=== PATIENT | male | born 1965 | race Caucasian/White ===

== ENCOUNTER → 2017-01-15 | Outpatient (REF) | payer MEDICARE, MEDICAID ==
[~2017-01-15] MED LIST: /LOR25TA OR; /MOXI40TA OR; ADV250INH INH; ALBU17IN INH; CIAL2.5T PO; LEVA12INH INH; LEVA750T PO; METH1VL IV; METH2.5T PO; MUCI600T34 PO; OMEP40CA2 PO; PRED10TA PO; PRED10TA2 PO; PRED2.5T OR; PRED20TA PO; PRED50TA2 PO; PRED5TAB PO; PREV30CA6 PO; PROV100T2 PO; RITA10TA OR; RITA10TA PO; SOMA350T PO; TIOT18INH INH; TIZA2TA PO; TYLE325T5 PO; VIAG100T PO; VICO5TA PO; [UNRECOGNIZED DRUG - REMARK]
[2017-01-15 12:29] LABS: BASO # 0.1 K/mm3 (0.0-0.2); BASO % 1.9 % (0.0-1.0); EOS # 0.2 K/mm3 (0.0-0.50); EOS % 3.5 % (0.0-3.0); LARGE UNSTAINED CELL # 0.2 K/mm3 (0.0-0.4); LARGE UNSTAINED CELL % 2.8 % (0.0-4.0); LYMPH # 1.9 K/mm3 (1.5-4.5); MEAN CORPUSCULAR HEMOGLOBIN 31.4 pg (27.0-33.0); MEAN CORPUSCULAR HGB CONC 33.4 g/dl (32.0-36.5); MONO # 0.4 K/mm3 (0.0-0.8); MONO % 6.8 % (0.0-5.0); NEUTROPHILS % 52.1 % (36.0-66.0); PLATELET COUNT, AUTOMATED 285 k/mm3 (150-450); RED CELL DISTRIBUTION WIDTH 12.6 % (11.5-14.5); WHITE BLOOD COUNT 5.7 K/mm3 (4.0-10.0)
[2017-01-15 12:49] LABS: FOLATE 11.4 NG/ML; VITAMIN B12 LEVEL 336 PG/ML
[2017-01-15 13:01] LABS: ALBUMIN 4.1 GM/DL (3.2-5.2); ALBUMIN/GLOBULIN RATIO 1.28 (1.00-1.93); ALKALINE PHOSPHATASE 68 U/L (45-117); ALT/SGPT 18 U/L (12-78); ANION GAP 5 MEQ/L (8-16); AST/SGOT 12 U/L (15-37); BLOOD UREA NITROGEN 15 MG/DL (7-18); CALCIUM LEVEL 9.5 MG/DL (8.5-10.1); CARBON DIOXIDE LEVEL 32 MEQ/L (21-32); CHLORIDE LEVEL 103 MEQ/L (98-107); CHOLESTEROL LEVEL 146 MG/DL (<200); CREATININE FOR GFR 0.98 MG/DL (0.70-1.30); GLOMERULAR FILTRATION RATE > 60.0 (>56); GLUCOSE, FASTING 73 MG/DL (70-105); POTASSIUM SERUM 4.7 MEQ/L (3.5-5.1); SODIUM LEVEL 140 MEQ/L (136-145); TOTAL PROTEIN 7.3 GM/DL (6.4-8.2); TRIGLYCERIDES LEVEL 61 MG/DL (<150)
== END ==
LOC: M SFHCADAM 10:39
PROVIDERS: ATTEND Physician Assistant Medical
DX: F17.210 Nicotine dependence, cigarettes, uncomplicated (principal); J44.9 Chronic obstructive pulmonary disease, unspecified; W54.0XXA Bitten by dog, initial encounter; G35 Multiple sclerosis; Z79.899 Other long term (current) drug therapy; Y92.89 Other specified places as the place of occurrence of the external cause; Y93.89 Activity, other specified; Y99.8 Other external cause status; E55.9 Vitamin D deficiency, unspecified
CPT/HCPCS: 80053; 80061; 82306; 82607; 82746; 84443; 85025; G0463

== ENCOUNTER 2017-08-10 16:07 | Inpatient (IN) | payer MEDICAID, MEDICARE ==
[~2017-08-10] VITALS: Ht 170.2 cm; Wt 61.9 kg
[2017-08-10] MEDS: PANTOPRAZOLE 40MG TAB (PROTONIX) PO SCH (09:00)
[~2017-08-10 16:07] MED LIST changes: -LEVA750T PO; +LEVA750T7 PO
[2017-08-10] MEDS ORDERED: methylPREDNISolone INJ 125 MG/2 ML VIAL (J2930) IV ONE (16:30)
[2017-08-10] MEDS ORDERED: NS 1,000 ML IV ONE (16:30)
[2017-08-10] MEDS ORDERED: AZITHROMYCIN INJ 500 MG, VIAL MATE ADAPTER 1 EACH in D5W 250 ML IV ONE (16:30)
[2017-08-10] MEDS ORDERED: CEFTRIAXONE SOD 1 GM in APPROPRIATE DILUENT 1 EA IV ONE (16:30)
[2017-08-10] MEDS ORDERED: ALBUTEROL SULFATE 2.5 MG/0.5 ML INH NEB SOLN INH ONE ×2 (16:30→17:15)
[2017-08-10] MEDS ORDERED: IPRATROPIUM 0.5MG/ALBUTEROL 2.5MG INH SOL UD 3ML (DUONEB)(J7620) NEB ONE ×2 (16:30→17:15)
[2017-08-10] MEDS ORDERED: ACETAMINOPHEN 325 MG TAB PO ONE (16:30)
[2017-08-10 16:40] LABS: BASO # 0.1 10^3/uL (0.0-0.2); BASO % 1.3 % (0.0-1.0); EOS % 0.4 % (0.0-3.0); IMMATURE GRANULOCYTE % 0.3 % (0-0); LYMPH # 0.9 10^3/uL (1.5-4.5); LYMPH % 11.9 % (24.0-44.0); MEAN CORPUSCULAR HEMOGLOBIN 31.3 pg (27.0-33.0); MEAN CORPUSCULAR HGB CONC 33.7 g/dl (32.0-36.5); MEAN CORPUSCULAR VOLUME 92.9 fl (80.0-96.0); MONO # 1.1 10^3/uL (0.0-0.8); MONO % 14.2 % (0.0-5.0); NEUTROPHILS # 5.4 10^3/uL (1.8-7.7); NEUTROPHILS % 71.9 % (36.0-66.0); PLATELET COUNT, AUTOMATED 244 10^3/uL (150-450); RED CELL DISTRIBUTION WIDTH 12.7 % (11.5-14.5); WHITE BLOOD COUNT 7.5 10^3/uL (4.0-10.0)
[2017-08-10 17:07] LABS: ABG BASE EXCESS 0.7 (-2.0-2.0); ABG HCO3 26.1 MEQ/L (22.0-26.0); ABG PARTIAL PRESSURE CO2 44.8 mmHg (35.0-45.0); ABG PARTIAL PRESSURE O2 77.3 mmHg (75.0-100.0); ABG STANDARD HCO3 25.1 MEQ/L (22.0-26.0); ABG TOTAL CO2 27.5 MEQ/L (22.0-29.0); ABG pH (ARTERIAL) 7.384 UNITS (7.350-7.450)
[2017-08-10 17:11] LABS: ALBUMIN/GLOBULIN RATIO 1.08 (1.00-1.93); ALKALINE PHOSPHATASE 72 U/L (45-117); ALT/SGPT 14 U/L (12-78); ANION GAP 5 MEQ/L (8-16); AST/SGOT 16 U/L (7-37); BILIRUBIN,DIRECT 0.5 MG/DL (0.0-0.2); BILIRUBIN,TOTAL 1.2 MG/DL (0.2-1.0); BLOOD UREA NITROGEN 11 MG/DL (7-18); CALCIUM LEVEL 8.8 MG/DL (8.5-10.1); CARBON DIOXIDE LEVEL 29 MEQ/L (21-32); CHLORIDE LEVEL 100 MEQ/L (98-107); GLOMERULAR FILTRATION RATE > 60.0 (>56); GLUCOSE, FASTING 74 MG/DL (70-105); POTASSIUM SERUM 4.1 MEQ/L (3.5-5.1); SODIUM LEVEL 134 MEQ/L (136-145); THYROXINE (T4) 12.7 UG/DL (4.5-12.0); TOTAL PROTEIN 7.7 GM/DL (6.4-8.2)
--- NOTE | 2017-08-10 17:41 | REP ---
Portable chest, 05:11 p.m.: Comparisons 07/05/2015 and 07/28/2012. The lung russell are clear. The cardiac size is normal. The tori, mediastinum, and bony thorax are unremarkable. Impression: Negative portable chest. Signed by Diallo Astudillo MD 08/10/2017 05:32 P
[2017-08-10] MEDS ORDERED: HYDR-3716 PO (17:52)
[2017-08-10] MEDS ORDERED: CARI350T PO (17:52)
[2017-08-10] MEDS ORDERED: CARISOPRODOL 350 MG TAB PO PRN (19:30)
[2017-08-10] MEDS ORDERED: ANEXSIA, NORCO 7.5MG/325MG TABLET(HYDROCODONE/APAP) PO PRN (19:30)
--- NOTE | 2017-08-10 19:46 | ECGEPIP ---
Stationary ECG Study [facility] - ED Test Date: 2017-08-10 Pat Name: AVINASH GONZALEZ Department: Room: - Gender: M Freight Booker: satish : 1965 Requested By: Indio Alcala Order Number: [id number] Reading MD: Indio Alcala Measurements Intervals [place] Rate: 107 P: 72 OK: 135 QRS: 89 QRSD: 110 T: 74 QT: 310 QTc: 415 Interpretive Statements SINUS TACHYCARDIA POSSIBLE RIGHT ATRIAL ENLARGEMENT POSSIBLE LEFT ATRIAL ENLARGEMENT INCOMPLETE RIGHT BUNDLE BRANCH BLOCK NONSPECIFIC ST T WAVE CHANGES ABNORMAL RHYTHM ECG CW 04/06/[address] T WAVE CHANGES Electronically Signed On 08-10-2017 19:45:45 EST by Indio Alcala
[2017-08-10] MEDS: ALBUTEROL SULFATE 2.5 MG/0.5 ML INH NEB SOLN NEB SCH (20:28)
[2017-08-10] MEDS: NS 1,000 ML IV SCH ×2 (21:04→23:00)
[2017-08-10 22:20] VITALS: BP 96/54
[2017-08-10] MEDS: SENOKOT S TAB PO SCH (22:50)
[2017-08-11] MEDS: methylPREDNISolone INJ 40 MG/1 ML VIAL (J2920) IV SCH ×4 (00:48→23:54)
[2017-08-11 01:03] VITALS: BP 80/46
[2017-08-11 02:27] VITALS: BP 106/64
[2017-08-11] MEDS: NS 1,000 ML IV SCH ×3 (04:27→12:23)
[2017-08-11 06:00] VITALS: BP 102/56
[2017-08-11 06:46] LABS: BASO % 0.2 % (0.0-1.0); IMMATURE GRANULOCYTE % 0.2 % (0-0); LYMPH # 0.3 10^3/uL (1.5-4.5); LYMPH % 5.2 % (24.0-44.0); MEAN CORPUSCULAR HEMOGLOBIN 30.6 pg (27.0-33.0); MEAN CORPUSCULAR HGB CONC 32.5 g/dl (32.0-36.5); MEAN CORPUSCULAR VOLUME 94.1 fl (80.0-96.0); MONO # 0.1 10^3/uL (0.0-0.8); MONO % 1.6 % (0.0-5.0); NEUTROPHILS # 5.7 10^3/uL (1.8-7.7); NEUTROPHILS % 92.8 % (36.0-66.0); PLATELET COUNT, AUTOMATED 243 10^3/uL (150-450); RED CELL DISTRIBUTION WIDTH 12.8 % (11.5-14.5); WHITE BLOOD COUNT 6.1 10^3/uL (4.0-10.0)
[2017-08-11 07:05] LABS: ANION GAP 8 MEQ/L (8-16); BLOOD UREA NITROGEN 8 MG/DL (7-18); CALCIUM LEVEL 7.8 MG/DL (8.5-10.1); CARBON DIOXIDE LEVEL 25 MEQ/L (21-32); CHLORIDE LEVEL 109 MEQ/L (98-107); CREATININE FOR GFR 0.78 MG/DL (0.70-1.30); GLOMERULAR FILTRATION RATE > 60.0 (>56); GLUCOSE, FASTING 121 MG/DL (70-105); POTASSIUM SERUM 4.6 MEQ/L (3.5-5.1); SODIUM LEVEL 142 MEQ/L (136-145)
[2017-08-11] MEDS: ALBUTEROL SULFATE 2.5 MG/0.5 ML INH NEB SOLN NEB SCH ×2 (07:06→14:20)
[2017-08-11] MEDS ORDERED: TIOTROPIUM INHALER/CAPSULE (SPIRIVA) INH SCH (08:00)
[2017-08-11] MEDS: SENOKOT S TAB PO SCH ×2 (08:22→21:00)
[2017-08-11] MEDS: ENOXAPARIN 40 MG/0.4 ML SYRINGE (J1650) SC SCH (08:22)
[2017-08-11] MEDS: PANTOPRAZOLE 40MG TAB (PROTONIX) PO SCH (08:22)
[2017-08-11] MEDS: ACETAMINOPHEN TAB 650MG DOSE (2X325MG) PO PRN ×2 (12:27→23:55)
--- NOTE | 2017-08-11 12:34 | HPE ---
DATE OF ADMISSION: 08/10/2017 Mr. Peralta is a 52-year-old gentleman who resides in [place], [place]. He has been feeling ill for the last 3 or 4 days, starting off with head cold symptoms to nasal congestion and clear rhinorrhea. He thought that perhaps he was running a temperature, did develop coughing and chest congestion and had more coughing and chest congestion and shortness of breath today. He came to emergency department where he was found to be hypoxic. He was also found to be febrile at 103.3. He was begun on treatment for chronic obstructive pulmonary disease (COPD) exacerbation and community-acquired pneumonia, and he is being admitted to the hospital. His past history includes a diagnosis of COPD with a history of exacerbation about 4 years ago. He is said to have multiple sclerosis. Interestingly, he is not on any medication for this. He smokes one pack per day. 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 MRIs of the brain, thoracic spine and cervical spine in the past have been consistent with demyelination changes consistent with MS. His home medications include: - albuterol one inhalation every 4 hours as needed - Spiriva one inhalation daily - hydrocodone 7.5/325 one tablet every 6 hours as needed for pain - Soma 350 mg twice a day as needed for muscle spasms. ALLERGIES: He does not have any medication allergies. FAMILY HISTORY: His father is alive. He has had gout. His mother ; she had lung disease, was in a car accident. A brother has diabetes. He also has a sister. He has three daughters who are healthy. Family history noted for neurological illness, myocardial infarction ([place]) or cerebrovascular disease or cancer. SOCIAL HISTORY: He is disabled. He resides in [place] with his and daughter. They raise [employer]. He denies alcohol consumption. He is usually seen in the [facility]; last seen by Josselyn Johnson. REVIEW OF SYSTEMS: He thought he did have a fever this week, certainly he has had malaise and he has had no appetite. Says he has not eaten in 3 days. He says he has blurry vision chronically, which is a little better with reading glasses. No hearing issues. No sore throat. No trouble swallowing. He does have a cough and chest congestion. He says he is usually not bothered by his breathing despite his smoking and his COPD diagnosis. Denies chest pains or palpitations. Denies edema. Denies nausea, vomiting, abdominal pain, diarrhea or constipation. Denies dysuria, hematuria, urinary frequency, although he does have nocturia several times. No edema. He does have intermittent leg pains, mostly in his foot. These are said to be due to his MS. He takes hydrocodone up to two times a day p.r.n. for this. He denies any rashes or itching. Denies anxiety or depression symptoms at this time. No memory issues. PHYSICAL EXAMINATION: On examination, this is long-haired, bearded white male with multiple tattoos on his arms. He is alert, oriented and cooperative. Initial temperature at 4:00 p.m. this afternoon was 103, at 6:00 p.m. was 98.2, pulse 96, respirations 18, blood pressure running from 83 to 101 over 51 to 62, oxygen saturation on room air was 84%, on 4 liters nasal cannula it is 95%. He is normocephalic. Extraocular movements are full. Pupils equal, round, regular, react to light. Mouth and throat is unremarkable. Tongue is midline. There is no neck masses, tenderness or adenopathy. No carotid bruits. His lungs show rhonchi at the left base, some end-expiratory wheezes on forced expiration. Heart: Has a regular rhythm without any murmur, click or gallop. Abdomen is soft and nontender without any masses or organomegaly. Bowel sounds are active. Back is nontender. No edema. No calf tenderness. No cyanosis or clubbing. Pedal pulses appear adequate. Cranial nerves III-XII within normal limits. Teller Supervisor are symmetric. Deep tendon reflexes are diminished. He does seem to have some clonus at the ankle. His labs show a hemoglobin of 15.0, WBC 7500, 72% segmented neutrophils, 12% lymphocytes, 14% monocytes. Chemistry profile remarkable for a sodium of 134, potassium 4.1, bilirubin 1.2. Other liver functions normal. CPK normal. Pro-BNP 165, TSH normal, thyroxine 12.7. An ABG done at 4:30 p.m. showed a pH of 7.38, pCO2 of 44.8, pO2 77. He was tested for influenza, and this was negative for type A and B. Chest x-ray is reported to show cardiac size normal. Lung russell clear. I would venture that there is hyperinflation but no infiltrate. ASSESSMENT: 1. Acute lower respiratory infection, suspect viral pneumonitis. 2. Exacerbation of chronic obstructive pulmonary disease (COPD). 3. History of multiple sclerosis. 4. Chronic leg pain due to multiple sclerosis. PLAN: The patient has been treated thus far with nebulizer, IV Solu-Medrol and ceftriaxone and azithromycin. Will be continuing antibiotics, bronchodilators and steroids. If patient does have symptoms of spasm in his legs or pain, we can offer him hydrocodone for the latter and Soma for the former. He was offered a nicotine patch for nicotine withdrawal while he is not smoking and he declines this. Since his blood pressures were soft, I did give him a bolus of IV fluids. His lactic acid level was 1.0. MTDD
--- NOTE | 2017-08-11 13:09 | IPNPDOC ---
Subjective Date Seen The patient was seen on 08/11/17. Subjective Chief Complaint/HPI The patient is a 52-year-old male admitted with a reason for visit of Bronchitis , Copd Exacerbat, Fever, Hypoxia. Events since last encounter Patient reports still having the cough. Feels a little better than yesterday. Denies any lightheadedness with lower blood pressures over night. Reports no oxygen use at home. Has been able to urinate well on his own, no difficulty or decreased amount. Cough is productive, does not look at color of phlegm. No chest pain. No fevers overnight. Constitutional: Denies: Chills, Fever Eyes: Denies: Pain, Vision change Pulmonary: Denies: Dyspnea Cardiovascular: Denies: Chest Pain Objective Physical Examination General Exam: Positive: Alert, Cooperative Eye Exam: Positive: PERRLA, Conjunctiva & lids normal ENT Exam: Positive: Atraumatic Neck Exam: Positive: Supple Chest Exam: Positive: Rales, Wheezing Heart Exam: Positive: Rate Normal Abdomen Exam: Positive: Normal bowel sounds, Soft, Tenderness Extremity Exam: Negative: Clubbing, Cyanosis Neuro Exam: Positive: Normal Gait Assessment /Plan Assessment 1. Acute lower respiratory infection, suspect viral pneumonitis. Continue with Azithromycin and cetriaxone for possible bacterial infection. Blood cultures are pending. Rapid flu negative. 2. Exacerbation of chronic obstructive pulmonary disease (COPD). Continue Solumedrol IV 40 mg q8h. Continue Spiriva and albuterol. Monitor vitals and titrate 02 to 88-92%. 3. Volume overload Rales on exam. Decreased IV fluids from 250 an hour to 50 mL/ hour. Monitor fluid status and output. 3. History of multiple sclerosis. 4. Chronic leg pain due to multiple sclerosis. Plan/VTE VTE Prophylaxis Ordered?: Yes (Lovenox) VS, I&O, 24H, Fishbone Vital Signs/I&O Vital Signs Date Time Temp Pulse Resp B/P (MAP) Pulse Ox O2 Delivery O2 Flow Rate FiO2 08/11/17 10:18 Nasal Cannula 4.0 08/11/17 07:11 100 08/11/17 06:00 98.2 22 102/56 (71) 92 08/10/17 16:28 92 I&O- Last 24 Hours up to 6 AM 08/12/17 06:00 Intake Total 850 ml Output Total 0 ml Balance 850 ml Laboratory Data 24H LABS Laboratory Tests 2 08/10/17 16:28: Immature Granulocyte % (Auto) 0.3H, White Blood Count 7.5, Red Blood Count 4.79 , Hemoglobin 15.0, Hematocrit 44.5, Mean Corpuscular Volume 92.9, Mean Corpuscular Hemoglobin 31.3, Mean Corpuscular Hemoglobin Concent 33.7, Red Cell Distribution Width 12.7, Platelet Count 244, Neutrophils (%) (Auto) 71.9H, Lymphocytes (%) (Auto) 11.9L, Monocytes (%) (Auto) 14.2H, Eosinophils (%) (Auto ) 0.4, Basophils (%) (Auto) 1.3H, Neutrophils # (Auto) 5.4, Lymphocytes # (Auto ) 0.9L, Monocytes # (Auto) 1.1H, Eosinophils # (Auto) 0.0, Basophils # (Auto) 0.1, Immature Granulocyte # (Auto) 0.0, Nucleated Red Blood Cells % (auto) 0.0, Anion Gap 5L, Glomerular Filtration Rate > 60.0, Lactic Acid Level 1.0, Calcium Level 8.8, Aspartate Amino Transf (AST/SGOT) 16, Alanine Aminotransferase (ALT/ SGPT) 14, Alkaline Phosphatase 72, Total Bilirubin 1.2H, Direct Bilirubin 0.5H, Total Creatine Kinase 116, Creatine Kinase MB 1.2, Creatine Kinase MB Relative Index 1.03, Troponin I < 0.02, UE-Gia-E-Type Natriuretic Peptide 165H, Total Protein 7.7, Albumin 4.0, Albumin/Globulin Ratio 1.08, Thyroid Stimulating Hormone (TSH) 0.657, Thyroxine (T4) 12.7H 08/10/17 16:29: Blood Gas Bicarbonate Standard 25.1, Arterial Blood pH 7.384, Arterial Blood Partial Pressure CO2 44.8, Arterial Blood Partial Pressure O2 77.3, Arterial Blood Total CO2 27.5, Arterial Blood HCO3 26.1H, Arterial Blood Base Excess 0.7 , Arterial Blood Oxygen Saturation 96.1 08/11/17 01:42: Lactic Acid Level 1.3 08/11/17 05:54: Immature Granulocyte % (Auto) 0.2H, White Blood Count 6.1, Red Blood Count 4.41 , Hemoglobin 13.5L, Hematocrit 41.5L, Mean Corpuscular Volume 94.1, Mean Corpuscular Hemoglobin 30.6, Mean Corpuscular Hemoglobin Concent 32.5, Red Cell Distribution Width 12.8, Platelet Count 243, Neutrophils (%) (Auto) 92.8H, Lymphocytes (%) (Auto) 5.2L, Monocytes (%) (Auto) 1.6, Eosinophils (%) (Auto) 0.0, Basophils (%) (Auto) 0.2, Neutrophils # (Auto) 5.7, Lymphocytes # (Auto) 0.3L, Monocytes # (Auto) 0.1, Eosinophils # (Auto) 0.0, Basophils # (Auto) 0.0, Immature Granulocyte # (Auto) 0.0, Nucleated Red Blood Cells % (auto) 0.0, Anion Gap 8, Glomerular Filtration Rate > 60.0, Calcium Level 7.8L, Blood Urea Nitrogen 8, Creatinine 0.78, Sodium Level 142#, Potassium Level 4.6, Chloride Level 109H, Carbon Dioxide Level 25 CBC/BMP Laboratory Tests 08/10/17 16:28 Red Blood Count 4.79, Mean Corpuscular Volume 92.9, Mean Corpuscular Hemoglobin 31.3, Mean Corpuscular Hemoglobin Concent 33.7, Red Cell Distribution Width 12.7 , Neutrophils (%) (Auto) 71.9 H, Lymphocytes (%) (Auto) 11.9 L, Monocytes (%) ( Auto) 14.2 H, Eosinophils (%) (Auto) 0.4, Basophils (%) (Auto) 1.3 H, Neutrophils # (Auto) 5.4, Lymphocytes # (Auto) 0.9 L, Monocytes # (Auto) 1.1 H, Eosinophils # (Auto) 0.0, Basophils # (Auto) 0.1 08/11/17 05:54 Red Blood Count 4.41, Mean Corpuscular Volume 94.1, Mean Corpuscular Hemoglobin 30.6, Mean Corpuscular Hemoglobin Concent 32.5, Red Cell Distribution Width 12.8 , Neutrophils (%) (Auto) 92.8 H, Lymphocytes (%) (Auto) 5.2 L, Monocytes (%) ( Auto) 1.6, Eosinophils (%) (Auto) 0.0, Basophils (%) (Auto) 0.2, Neutrophils # ( Auto) 5.7, Lymphocytes # (Auto) 0.3 L, Monocytes # (Auto) 0.1, Eosinophils # ( Auto) 0.0, Basophils # (Auto) 0.0, Calcium Level 7.8 L Microbiology Microbiology 08/10/17 Blood Culture, Received Pending 08/10/17 Blood Culture, Received Pending 08/10/17 Influenza Virus Type A Antigen - Final, Complete 08/10/17 Influenza Virus Type B Antigen - Final, Complete GME ATTESTATION GME ATTESTATION My faculty preceptor for this patient encounter was physically present during the encounter and was fully available. All aspects of the patient interview, examination, medical decision making process, and medical care plan development were reviewed and approved by the faculty preceptor. The faculty preceptor is aware and concurs with the plan as stated in the body of this note and will attest to such by his/her cosignature. ATTENDING NOTE Attending physician note: Resident seen and examined. Case reviewed with Dr. Gomez. ROSANNE MABRY DO Aug 11, 2017 13:09 Luke Diaz M.D. Aug 15, 2017 12:36
[2017-08-11 14:00] VITALS: BP 133/58
[2017-08-11] MEDS: CEFTRIAXONE SOD 1 GM in APPROPRIATE DILUENT 1 EA IV SCH (17:51)
[2017-08-11] MEDS: AZITHROMYCIN INJ 500 MG, VIAL MATE ADAPTER 1 EACH in D5W 250 ML IV SCH (18:50)
[2017-08-11] MEDS: IPRATROPIUM 0.5MG/ALBUTEROL 2.5MG INH SOL UD 3ML (DUONEB)(J7620) NEB SCH ×2 (20:33→23:48)
[2017-08-11 22:00] VITALS: BP 111/71
[2017-08-12] VITALS (8 sets, daily range): BP systolic 113–149; BP diastolic 67–89; O2SAT 97
--- NOTE | 2017-08-12 02:21 | REP ---
Clinical: Cough and wheezing . Comparison: 07/05/2015 . Findings: The mediastinum and cardiac silhouette are stable and within normal limits for portable technique. The lung russell demonstrate chronic-appearing interstitial changes without acute consolidation, effusion, or pneumothorax. Skeletal structures are intact. Impression: No acute cardiopulmonary process appreciated. Signed by Luis Fernando Sorensen MD 08/11/2017 11:13 P
[2017-08-12] MEDS: ACETAMINOPHEN TAB 650MG DOSE (2X325MG) PO PRN ×3 (05:39→20:28)
[2017-08-12] MEDS: IPRATROPIUM 0.5MG/ALBUTEROL 2.5MG INH SOL UD 3ML (DUONEB)(J7620) NEB SCH ×6 (05:39→23:16)
[2017-08-12 07:04] LABS: BASO % 0.1 % (0.0-1.0); IMMATURE GRANULOCYTE % 0.7 % (0-0); LYMPH # 0.4 10^3/uL (1.5-4.5); LYMPH % 3.2 % (24.0-44.0); MEAN CORPUSCULAR HEMOGLOBIN 30.8 pg (27.0-33.0); MEAN CORPUSCULAR HGB CONC 32.3 g/dl (32.0-36.5); MEAN CORPUSCULAR VOLUME 95.4 fl (80.0-96.0); MONO # 0.5 10^3/uL (0.0-0.8); MONO % 4.2 % (0.0-5.0); NEUTROPHILS # 10.9 10^3/uL (1.8-7.7); NEUTROPHILS % 91.8 % (36.0-66.0); PLATELET COUNT, AUTOMATED 231 10^3/uL (150-450); RED CELL DISTRIBUTION WIDTH 13.2 % (11.5-14.5); WHITE BLOOD COUNT 11.9 10^3/uL (4.0-10.0)
[2017-08-12 07:30] LABS: ANION GAP 8 MEQ/L (8-16); BLOOD UREA NITROGEN 12 MG/DL (7-18); CALCIUM LEVEL 7.9 MG/DL (8.5-10.1); CARBON DIOXIDE LEVEL 26 MEQ/L (21-32); CHLORIDE LEVEL 108 MEQ/L (98-107); CREATININE FOR GFR 0.62 MG/DL (0.70-1.30); GLOMERULAR FILTRATION RATE > 60.0 (>56); GLUCOSE, FASTING 133 MG/DL (70-105); POTASSIUM SERUM 4.2 MEQ/L (3.5-5.1); SODIUM LEVEL 142 MEQ/L (136-145)
[2017-08-12] MEDS: PANTOPRAZOLE 40MG TAB (PROTONIX) PO SCH (08:59)
[2017-08-12] MEDS: SENOKOT S TAB PO SCH ×2 (08:59→20:27)
[2017-08-12] MEDS: ENOXAPARIN 40 MG/0.4 ML SYRINGE (J1650) SC SCH (09:00)
[2017-08-12] MEDS ORDERED: INFLUENZA QUADRIVALENT PF VACCINE 0.5ML SYRINGE (90686) IM ONE (09:00)
[2017-08-12] MEDS: methylPREDNISolone INJ 40 MG/1 ML VIAL (J2920) IV SCH (09:01)
--- NOTE | 2017-08-12 09:53 | IPNPDOC ---
Subjective Date Seen The patient was seen on 08/12/17. Subjective Chief Complaint/HPI The patient is a 52-year-old male admitted with a reason for visit of Bronchitis , Copd Exacerbat, Fever, Hypoxia. Constitutional: Denies: Chills ENT: Denies: Head Aches Skin: Denies: Rash Gastrointestinal: Denies: Nausea, Abdominal Pain Genitourinary: Denies: Dysuria, Incontinence Hematologic: Denies: Bruising Objective Physical Examination General Exam: Positive: Alert, Cooperative Eye Exam: Positive: PERRLA, Conjunctiva & lids normal ENT Exam: Positive: Atraumatic Neck Exam: Positive: Supple Chest Exam: Positive: Wheezing (faint, diffuse. no accessory muscle use observed; no retractions) Heart Exam: Positive: Rate Normal Abdomen Exam: Positive: Normal bowel sounds, Soft, Tenderness Extremity Exam: Negative: Clubbing, Cyanosis Neuro Exam: Positive: Normal Gait Assessment /Plan Problems (1) COPD exacerbation Status: Acute Response to Treatment: Improving Problem Text: CXR showed no worsening yesterday. he looks comfortable, no apparent distress. scattered mild wheezing, no flaring and no retractions. (2) Multiple sclerosis Status: Chronic Response to Treatment: Stable Plan/VTE VTE Prophylaxis Ordered?: Yes (Lovenox) Plan Anticipated Discharge: Home VS, I&O, 24H, [facility] Vital Signs/I&O Vital Signs Date Time Temp Pulse Resp B/P (MAP) Pulse Ox O2 Delivery O2 Flow Rate FiO2 08/12/17 06:00 98.2 117 22 134/72 (92) 96 Nasal Cannula 4.0 08/10/17 16:28 92 Laboratory Data 24H LABS Laboratory Tests 2 08/12/17 06:33: Immature Granulocyte % (Auto) 0.7H, White Blood Count 11.9H, Red Blood Count 4.12L, Hemoglobin 12.7L, Hematocrit 39.3L, Mean Corpuscular Volume 95.4, Mean Corpuscular Hemoglobin 30.8, Mean Corpuscular Hemoglobin Concent 32.3, Red Cell Distribution Width 13.2, Platelet Count 231, Neutrophils (%) (Auto) 91.8H, Lymphocytes (%) (Auto) 3.2L, Monocytes (%) (Auto) 4.2, Eosinophils (%) (Auto) 0.0, Basophils (%) (Auto) 0.1, Neutrophils # (Auto) 10.9H, Lymphocytes # (Auto) 0.4L, Monocytes # (Auto) 0.5, Eosinophils # (Auto) 0.0, Basophils # (Auto) 0.0, Immature Granulocyte # (Auto) 0.1H, Nucleated Red Blood Cells % (auto) 0.0, Anion Gap 8, Glomerular Filtration Rate > 60.0, Blood Urea Nitrogen 12, Creatinine 0.62L, Sodium Level 142, Potassium Level 4.2, Chloride Level 108H, Carbon Dioxide Level 26, Calcium Level 7.9L CBC/BMP Laboratory Tests 08/12/17 06:33 Red Blood Count 4.12 L, Mean Corpuscular Volume 95.4, Mean Corpuscular Hemoglobin 30.8, Mean Corpuscular Hemoglobin Concent 32.3, Red Cell Distribution Width 13.2, Neutrophils (%) (Auto) 91.8 H, Lymphocytes (%) (Auto) 3.2 L, Monocytes (%) (Auto) 4.2, Eosinophils (%) (Auto) 0.0, Basophils (%) (Auto ) 0.1, Neutrophils # (Auto) 10.9 H, Lymphocytes # (Auto) 0.4 L, Monocytes # ( Auto) 0.5, Eosinophils # (Auto) 0.0, Basophils # (Auto) 0.0, Calcium Level 7.9 L Microbiology Microbiology 08/10/17 Blood Culture - Preliminary, Resulted No growth after 24 hours . All specim... 08/10/17 Blood Culture - Preliminary, Resulted No growth after 24 hours . All specim... 08/10/17 Influenza Virus Type A Antigen - Final, Complete 08/10/17 Influenza Virus Type B Antigen - Final, Complete Rocky Randolph MD Aug 12, 2017 09:53
[2017-08-12] MEDS: NS 1,000 ML IV SCH (12:20)
[2017-08-12 13:14] LABS: ABG BASE EXCESS -0.5 (-2.0-2.0); ABG HCO3 27.4 MEQ/L (22.0-26.0); ABG PARTIAL PRESSURE CO2 59.3 mmHg (35.0-45.0); ABG PARTIAL PRESSURE O2 71.4 mmHg (75.0-100.0); ABG TOTAL CO2 29.2 MEQ/L (22.0-29.0); ABG pH (ARTERIAL) 7.283 UNITS (7.350-7.450)
[2017-08-12] MEDS ORDERED: FUROSEMIDE 40 MG/4 ML VIAL (J1940) IV ONE (14:30)
--- NOTE | 2017-08-12 15:04 | REP ---
Portable chest x-ray: Single view. History: Dyspnea. Comparison study: August 11, 2017. Findings: The lungs are hyperinflated. Interstitial markings are prominent bilaterally which may reflect interstitial edema. There are is questionable new infiltrate in the left mid lung zone overlying the inferior scapula. Heart is not enlarged. Impression: Prominent interstitial markings. Question infiltrate left mid lung zone. Signed by Leeroy Nguyen MD 08/12/2017 04:14 P
[2017-08-12] MEDS: methylPREDNISolone INJ 125 MG/2 ML VIAL (J2930) IV SCH ×2 (16:58→23:49)
[2017-08-12] MEDS: CEFTRIAXONE SOD 1 GM in APPROPRIATE DILUENT 1 EA IV SCH (16:58)
[2017-08-12] MEDS ORDERED: BUDESONIDE 180MCG INHALER (PULMICORT FLEXHALER) INH ONE (17:00)
--- NOTE | 2017-08-12 17:06 | IPN ---
DATE: 08/12/2017 SUBJECTIVE: The patient is significantly more dyspneic and wheezy than when he was seen earlier today. Gradually became more dyspneic as a day has progressed. He has also shown some evidence of fever. He is looks to be in no distress. He is attempting to sip from his cup of water. His temperature was 101.4 at new and is now 100.9. Pulse 124 by direct radial palpation. He is taking tachypneic, more so than this morning, respiratory rate 32, blood pressure 149/73. Oxygen saturation is 92-94% of Venturi mask flowing at 15 liters. Compared to this morning on 4 liters he was 96%. Auscultation of the chest on exam shows equal air entry and breath sounds, diffuse wheezing, more prominent than before. Prolonged expiratory phase, also more notable than this morning. Abdomen: Soft, nontender. No guarding. No chest wall tenderness. Again, he is alert and oriented, and he is not cyanotic, although significant increase in oxygen requirement. Chest x-ray, repeat lactic acid, and arterial blood gas (ABG) are pending at this time. ASSESSMENT: Acute exacerbation of codpxx, worsening this afternoon with re-development of fever plan. PLAN: Will repeat his respiratory panel, since the first study was negative. Influenza antigen and antibody screen were negative. We will continue steroids and current antibiotic regimen. He is on nebulizers with albuterol plus ipratropium every 4 routinely every two hours with albuterol as needed for dyspnea. At this point, if his blood gas shows no worsening hypercarbia, will keep him on his current situation with telemetry, anticipating giving steroids more time to be effective and reversing some of his bronchospasm, but if he does have respiratory syncytial virus, then he may have further deterioration before he improves. Note that yesterday evening he did suffer an acute worsening of his status at that time as well. Will repeat basic metabolic panel (BMP) and his chest x-ray to see if he is developing some fluid retention, and he may require a pulmonary consultation and possible additional ventilatory support. Certainly if his oxygen cannot be maintained on Venturi, or if he is developing hyperkalemia and hypercarbia, then further interventions will be needed.
[2017-08-12 17:16] LABS: ABG BASE EXCESS 1.5 (-2.0-2.0); ABG HCO3 26.6 MEQ/L (22.0-26.0); ABG PARTIAL PRESSURE CO2 43.8 mmHg (35.0-45.0); ABG PARTIAL PRESSURE O2 69.6 mmHg (75.0-100.0); ABG STANDARD HCO3 25.7 MEQ/L (22.0-26.0); ABG TOTAL CO2 27.9 MEQ/L (22.0-29.0); ABG pH (ARTERIAL) 7.401 UNITS (7.350-7.450)
[2017-08-12] MEDS: ALBUTEROL SULFATE 2.5 MG/0.5 ML INH NEB SOLN NEB PRN ×2 (17:18→20:03)
[2017-08-12] MEDS: AZITHROMYCIN INJ 500 MG, VIAL MATE ADAPTER 1 EACH in D5W 250 ML IV SCH (17:22)
[2017-08-12] MEDS: BUDESONIDE 0.5 MG/2 ML INHALATION SUSPENSION INH SCH ×2 (17:35→20:03)
--- NOTE | 2017-08-12 19:31 | CCN ---
DATE: 08/12/2017 Time patient was seen was 3 p.m. CONSULTING PHYSICIAN: Rocky Randolph MD EXPENSE ANALYST: Jelani Whyte MD, pulmonology/critical care. NOTE: We were asked by Dr. Randolph to emergently evaluate Mr. Peralta for acute respiratory distress. Mr. Peralta is 52-year-old male with a past medical history significant for chronic obstructive pulmonary disease (COPD), asthma (self reported), active tobacco usage on admission (one pack a day) and multiple sclerosis who presented to the emergency department on 08/10/2017 with increased shortness on breath, cough productive of clear sputum and fever. He was felt to have a COPD exacerbation secondary to acute bronchitis and was treated with systemic corticosteroids, antibiotics and bronchodilators. This morning Mr. Peralta's condition worsened. He had marked increased shortness of breath, wheezing and work of breathing and was transferred to the intensive care unit. He notes an ongoing cough but cannot expectorate. He feels significant chest tightness but denies chest pain. No nausea or abdominal pain. No emesis. He remains febrile. No know ill contacts. ALLERGIES: None. HOME MEDICATIONS: Including: - hydrocodone/acetaminophen 7.5/325 mg one tablet by mouth every 6 hours as needed - Ventolin one puff inhalation every 4 hours as needed - carisoprodol 350 mg one tablet by mouth twice a day as needed - Spiriva one inhalation daily PHYSICAL EXAMINATION: VITAL SIGNS: Temperature 101, pulse 123, respirations 28, oxygen was saturating at 91% on room air. Intake and output: Patient's total intake yesterday was 3265, total output 1100 , and balance of positive 2165. GENERAL: Patient is a thin-looking, middle aged male who appeared to be older than his biological age, who was alert, awake, oriented times three. Appears to be in mild distress, laying comfortably in bed with head elevated at 45 degree angle. He speaks in short sentences. HEENT: Normocephalic, atraumatic. Extraocular muscles intact. Mucous moist. Neck supple, no neck lymphadenopathy. CARDIOVASCULAR: Tachycardic, normal S1, S2. No murmur. LUNGS: Symmetric but minimal excursion. No crackles or rhonchi. Wheezing was heard throughout the lung russell with very poor air entrance bilaterally. Significantly prolonged expiratory phase. Mild supraclavicular accessory muscle usage. No retractions. CHEST: Increased anteroposterior (AP) diameter. ABDOMEN: Positive bowel sounds. Soft, nontender, nontender, nondistended. No peritoneal signs. No ecchymosis. No hepatosplenomegaly or masses. EXTREMITIES: No edema, clubbing, or cyanosis. SKIN: Warm and dry. NEUROLOGIC: Patient does have bilateral upper and lower extremity weaknesses. LABORATORY DATA: WBC 11.9, hemoglobin 12.7, hematocrit 39.3, platelet count 231, MCV 95.4. Sodium 142, potassium 4.2, chloride 108, bicarbonate 26, anion gap 8, BUN 8, creatinine 0.63. GFR greater than 60, fasting glucose 133, lactic acid was 2.5, calcium 7.9. BNP was >3000 elevated from 160. Patient's initial ABG shows a pH of 7.283, pCO2 of 59.3, pO2 of 71.4, oxygen saturation was 93.8%. Repeat ABG at 4:30 p.m. shows pH of 7.4, pCO2 of 43.8, pO2 of 69, with oxygen saturating at 95.4%. Patient's methicillin-resistant Staphylococcus aureus (MRSA), respiratory panel, and influenza screening were all pending. Blood culture, times two, shows no growth after 2 days. We reviewed his chest x-ray as well as the report from earlier today. That x- ray showed a normal appearing cardiac silhouette and pulmonary shadows. Increased interstitial markings. Hyperinflation. No acute infiltrates. ASSESSMENT: 52-year-old male with past medical history of chronic obstructive pulmonary disease (COPD), ongoing tobacco usage and multiple sclerosis with: 1. Acute hypercapnic and hypoxemic respiratory failure. He is felt to have a COPD exacerbation secondary to an acute bronchitis (question viral) but his acute decompensation this morning is felt in large part secondary to pulmonary edema. 2. COPD. Etiology may be smoking related vs. asthma with remodeling vs combination of these entities versus other. He appears to have a very bronchospastic component to his obstructive process. 3. Pulmonary edema. Etiology may be fluid overload but need to consider cardiac etiologies. 4. Tobacco usage, ongoing at the time of admission. 5. Multiple sclerosis. Follows with Dr. Marcum. 6. Deep venous thrombosis (DVT) prophylaxis with Lovenox. RECOMMENDATIONS: 1. Would send viral panel. 2. Agree with diuresis. 3. Agree with current antibiotics. 4. Will make NPO for now given marked increased work of breathing, 5. Continue with systemic corticosteroids and bronchodilators. 6. Agree with LAMA. 7. Initially, I was going to start him on NIMV but he clinically appeared to respond to the diuretic and bronchodilators as illustrated by his improved ABG so will defer at this time. 8. Should he again worsen, options would include NIMV but heliox may also be considered as he is very bronchospastic and does not require high FiO2. 9. Tobacco cessation strongly recommended. CODE Status: Patient would like to be DNR/DNI, MOLST form in chart. Total critical care time 45 minutes. ADDENDUM; I, Dr. Anurag Whyte, independently performed a history and physical examination and agree with the above documentation. I discussed the assessment and plan with the resident and agree with the documentation. AMRITA
[2017-08-13] VITALS (7 sets, daily range): BP systolic 93–106; BP diastolic 54–69
[2017-08-13] MEDS: IPRATROPIUM 0.5MG/ALBUTEROL 2.5MG INH SOL UD 3ML (DUONEB)(J7620) NEB SCH ×5 (03:36→19:36)
[2017-08-13] MEDS: methylPREDNISolone INJ 125 MG/2 ML VIAL (J2930) IV SCH ×2 (04:04→11:03)
[2017-08-13 04:59] LABS: BASO % 0.1 % (0.0-1.0); IMMATURE GRANULOCYTE % 0.5 % (0-0); LYMPH # 0.5 10^3/uL (1.5-4.5); LYMPH % 6.4 % (24.0-44.0); MEAN CORPUSCULAR HEMOGLOBIN 31.1 pg (27.0-33.0); MEAN CORPUSCULAR HGB CONC 33.1 g/dl (32.0-36.5); MEAN CORPUSCULAR VOLUME 94.1 fl (80.0-96.0); MONO # 0.2 10^3/uL (0.0-0.8); NEUTROPHILS # 7.1 10^3/uL (1.8-7.7); PLATELET COUNT, AUTOMATED 212 10^3/uL (150-450); WHITE BLOOD COUNT 7.9 10^3/uL (4.0-10.0)
[2017-08-13 05:24] LABS: ANION GAP 6 MEQ/L (8-16); BLOOD UREA NITROGEN 14 MG/DL (7-18); CALCIUM LEVEL 8.1 MG/DL (8.5-10.1); CARBON DIOXIDE LEVEL 34 MEQ/L (21-32); CHLORIDE LEVEL 100 MEQ/L (98-107); CREATININE FOR GFR 0.67 MG/DL (0.70-1.30); GLOMERULAR FILTRATION RATE > 60.0 (>56); GLUCOSE, FASTING 129 MG/DL (70-105); POTASSIUM SERUM 3.7 MEQ/L (3.5-5.1); SODIUM LEVEL 140 MEQ/L (136-145)
[2017-08-13] MEDS: BUDESONIDE 0.5 MG/2 ML INHALATION SUSPENSION INH SCH ×2 (07:30→19:36)
--- NOTE | 2017-08-13 07:40 | IPNPDOC ---
Subjective Date Seen The patient was seen on 08/13/17. Subjective Chief Complaint/HPI The patient is a 52-year-old male admitted with a reason for visit of Bronchitis , Copd Exacerbat, Fever, Hypoxia. Events since last encounter Transferred to ICU for hypercarbia/respiratory acidosis. Significant diuresis with negative 1+L. Patient notes improvement in breathing. Weaned to 2LNC. saturations maintained at a 92-94% range. Constitutional: Reports: Fever (T max 101.1), Denies: Chills, Night Sweats Skin: Denies: Rash, Lesions, Breakdown Pulmonary: Reports: Dyspnea, Cough Cardiovascular: Denies: Chest Pain, Palpitations, Orthopnea, Paroxysmal Noc. Dyspnea, Lt Headedness Gastrointestinal: Denies: Nausea, Vomiting, Abdominal Pain, Diarrhea, Constipation Genitourinary: Denies: Dysuria, Frequency, Incontinence, Retention Objective Physical Examination General Exam: Positive: Alert, Cooperative Eye Exam: Positive: PERRLA, Conjunctiva & lids normal ENT Exam: Positive: Atraumatic Neck Exam: Positive: Supple Chest Exam: Positive: Rales (RLL fine crackles. ), Wheezing (expiratory wheeze throughout) Heart Exam: Positive: Rate Normal Abdomen Exam: Positive: Normal bowel sounds, Soft, Tenderness Extremity Exam: Negative: Clubbing, Cyanosis Neuro Exam: Positive: Normal Gait Assessment /Plan Problems (1) RSV (respiratory syncytial virus infection) Status: Acute Problem Specific Plan: Consult Specialist (2) COPD exacerbation Status: Acute Response to Treatment: Improving Problem Text: 08/13/17: + RSV on respiratory panel. Solumedrol IV q 6 hrs and nebs q 4 hrs. monitor. Maintain oxygen. Better today. CXR showed no worsening yesterday. he looks comfortable, no apparent distress. scattered mild wheezing, no flaring and no retractions. (3) Multiple sclerosis Status: Chronic Response to Treatment: Stable Plan/VTE VTE Prophylaxis Ordered?: Yes (Lovenox) Plan Anticipated Discharge: Home VS, I&O, 24H, Shashi Vital Signs/I&O Vital Signs Date Time Temp Pulse Resp B/P (MAP) Pulse Ox O2 Delivery O2 Flow Rate FiO2 08/13/17 04:00 Nasal Cannula 2.0 08/13/17 04:00 99.9 102 24 101/57 (72) 94 08/12/17 16:00 40 Laboratory Data 24H LABS Laboratory Tests 2 12/18/17 12:58: Lactic Acid Level 2.5*H, OD-Tnw-X-Type Natriuretic Peptide 3334H 08/12/17 13:01: Blood Gas Bicarbonate Standard 24.0, Arterial Blood pH 7.283L, Arterial Blood Partial Pressure CO2 59.3H, Arterial Blood Partial Pressure O2 71.4L, Arterial Blood Total CO2 29.2H, Arterial Blood HCO3 27.4H, Arterial Blood Base Excess - 0.5, Arterial Blood Oxygen Saturation 93.8L 08/12/17 16:09: 08/12/17 16:35: Blood Gas Bicarbonate Standard 25.7, Arterial Blood pH 7.401, Arterial Blood Partial Pressure CO2 43.8, Arterial Blood Partial Pressure O2 69.6L, Arterial Blood Total CO2 27.9, Arterial Blood HCO3 26.6H, Arterial Blood Base Excess 1.5 , Arterial Blood Oxygen Saturation 95.4 08/12/17 17:33: Lactic Acid Followup at 4 Hours 1.9 08/13/17 04:50: Immature Granulocyte % (Auto) 0.5H, White Blood Count 7.9, Red Blood Count 4.27L , Hemoglobin 13.3L, Hematocrit 40.2L, Mean Corpuscular Volume 94.1, Mean Corpuscular Hemoglobin 31.1, Mean Corpuscular Hemoglobin Concent 33.1, Red Cell Distribution Width 13.0, Platelet Count 212, Neutrophils (%) (Auto) 90.0H, Lymphocytes (%) (Auto) 6.4L, Monocytes (%) (Auto) 3.0, Eosinophils (%) (Auto) 0.0, Basophils (%) (Auto) 0.1, Neutrophils # (Auto) 7.1, Lymphocytes # (Auto) 0.5L, Monocytes # (Auto) 0.2, Eosinophils # (Auto) 0.0, Basophils # (Auto) 0.0, Immature Granulocyte # (Auto) 0.0, Nucleated Red Blood Cells % (auto) 0.0, Anion Gap 6L, Glomerular Filtration Rate > 60.0, Blood Urea Nitrogen 14, Creatinine 0.67L, Sodium Level 140, Potassium Level 3.7, Chloride Level 100, Carbon Dioxide Level 34H, Calcium Level 8.1L CBC/BMP Laboratory Tests 08/13/17 04:50 Red Blood Count 4.27 L, Mean Corpuscular Volume 94.1, Mean Corpuscular Hemoglobin 31.1, Mean Corpuscular Hemoglobin Concent 33.1, Red Cell Distribution Width 13.0, Neutrophils (%) (Auto) 90.0 H, Lymphocytes (%) (Auto) 6.4 L, Monocytes (%) (Auto) 3.0, Eosinophils (%) (Auto) 0.0, Basophils (%) (Auto ) 0.1, Neutrophils # (Auto) 7.1, Lymphocytes # (Auto) 0.5 L, Monocytes # (Auto) 0.2, Eosinophils # (Auto) 0.0, Basophils # (Auto) 0.0, Calcium Level 8.1 L Microbiology Microbiology 08/10/17 Blood Culture - Preliminary, Resulted No Growth after 48 hours. All Specime... 08/10/17 Blood Culture - Preliminary, Resulted No Growth after 48 hours. All Specime... 08/12/17 MRSA Screen, Received Pending 08/12/17 Respiratory Virus Panel (PCR) ([facility]) - Final, Complete Respiratory Syncytial Virus 08/10/17 Influenza Virus Type A Antigen - Final, Complete 08/10/17 Influenza Virus Type B Antigen - Final, Complete Pilar Murphy Aug 13, 2017 07:40 Rocky Randolph MD Aug 13, 2017 13:16
[2017-08-13] MEDS: ENOXAPARIN 40 MG/0.4 ML SYRINGE (J1650) SC SCH (08:57)
[2017-08-13] MEDS: SENOKOT S TAB PO SCH ×2 (08:57→20:22)
[2017-08-13] MEDS: PANTOPRAZOLE 40MG TAB (PROTONIX) PO SCH (08:57)
[2017-08-13] MEDS ORDERED: BUDESONIDE 180MCG INHALER (PULMICORT FLEXHALER) INH SCH (09:00)
[2017-08-13] MEDS: ACETAMINOPHEN TAB 650MG DOSE (2X325MG) PO PRN (10:59)
[2017-08-13] MEDS ORDERED: SLF 3 ML SYR IV PRN (13:45)
[2017-08-13] MEDS: SLF 3 ML SYR IV SCH ×2 (14:07→22:00)
[2017-08-14] VITALS (7 sets, daily range): BP systolic 94–113; BP diastolic 58–68; O2SAT 90
[2017-08-14] MEDS: IPRATROPIUM 0.5MG/ALBUTEROL 2.5MG INH SOL UD 3ML (DUONEB)(J7620) NEB SCH ×6 (01:10→20:05)
[2017-08-14] MEDS: SLF 3 ML SYR IV SCH ×3 (06:00→22:00)
[2017-08-14 06:55] LABS: MEAN CORPUSCULAR HGB CONC 33.3 g/dl (32.0-36.5); MEAN CORPUSCULAR VOLUME 93.1 fl (80.0-96.0); PLATELET COUNT, AUTOMATED 237 10^3/uL (150-450); RED CELL DISTRIBUTION WIDTH 12.8 % (11.5-14.5); WHITE BLOOD COUNT 8.5 10^3/uL (4.0-10.0)
[2017-08-14 06:57] LABS: ADD MANUAL DIFFER YES; DIFF SLIDE NUMBER 29; POSITIVE MORPH POS FLAG
[2017-08-14 07:02] LABS: ANION GAP 5 MEQ/L (8-16); BLOOD UREA NITROGEN 23 MG/DL (7-18); CALCIUM LEVEL 7.8 MG/DL (8.5-10.1); CARBON DIOXIDE LEVEL 35 MEQ/L (21-32); CHLORIDE LEVEL 104 MEQ/L (98-107); CREATININE FOR GFR 0.66 MG/DL (0.70-1.30); GLOMERULAR FILTRATION RATE > 60.0 (>56); GLUCOSE, FASTING 105 MG/DL (70-105); POTASSIUM SERUM 3.7 MEQ/L (3.5-5.1); SODIUM LEVEL 144 MEQ/L (136-145)
[2017-08-14 07:25] LABS: BANDS 3 % (< 11)
--- NOTE | 2017-08-14 08:06 | ECHO ---
DATE OF PROCEDURE: 08/13/2017 AGE: 52 GENDER: Male HEIGHT: 67 inches. WEIGHT: 136 pounds. BODY SURFACE AREA: 1.72 sq m. INPATIENT: ICU Room 3208 REFERRING PHYSICIAN: Dr. Donavan Fox INDICATION: Heart failure (unspecified). COPD. MEASUREMENTS: 2D MEASUREMENTS: RV - 2.9 cm LV- 34.0 cm Septum - 0.8 cm Posterior wall - 0.8 cm Aortic root - 3.1 cm LA -2.7 cm LVEF - 65% DOPPLER MEASUREMENTS: AV - 1.26 m/s LVOT- 0.85 m/s LVOT diameter- 2.0 cm MV-E: 86 A: 89 EA ratio 1 Early mitral deacceleration time 236 ms E-prime - 10 A-prime - 10 E/E prime ratio 8.6 PV - 0.8 m/s Pulmonary artery acceleration time 106 ms RVSP: 34 mmHg IVC - 2.1 cm COMMENTS; Normal sinus rhythm without intraventricular conduction disturbance. Normal cardiac chamber sizes and wall thickness. On real-time imaging from the parasternal, apical and subcostal projections wall motion was globally normal to hyperkinetic. Normal-appearing mitral valvular apparatus and leaflet excursion with no posterior systolic buckling. Three equal size aortic cusps of normal thickness and cusp separation. Normal aortic root size. No apparent intracardiac mass or pericardial effusion. Color flow Doppler study taken from the parasternal and projection showed mild tricuspid but no mitral or aortic insufficiency. Guided continuous wave Doppler of his aortic valve showed a normal peak systolic velocity against LV outflow tract obstruction. Pulsed and continuous wave Doppler of his LV inflow tract taken from the apical four-chamber projection showed normal diastolic filling velocities against mitral stenosis. There was also a normal filling pattern. His current estimated mean left atrial pressure was well within normal limits. Pulsed and continuous wave Doppler of his pulmonary trunk showed a normal peak systolic velocity against RV outflow tract obstruction. Pulmonary artery acceleration time was mildly abbreviated consistent with a mildly elevated pulmonary vascular resistance. Guided continuous wave Doppler of his tricuspid valve allowed our estimation of his right ventricular systolic pressure (mildly increased). His inferior vena cava was upper limits of normal in size with a normal appearing respiratory collapse at this time against an elevated central venous pressure. CONCLUSIONS: Normal left ventricular size, wall thickness and hyperkinetic wall motion. Normal left atrial size and Doppler assessment of LV diastolic function and estimated mean left atrial pressure. Normal right heart chamber sizes and wall motion with Doppler sign of borderline to mild pulmonary hypertension. Slightly dilated inferior vena cava with normal respiratory collapse against an elevated central venous pressure at this time.
[2017-08-14] MEDS: ENOXAPARIN 40 MG/0.4 ML SYRINGE (J1650) SC SCH (08:26)
[2017-08-14] MEDS: SENOKOT S TAB PO SCH ×2 (08:26→20:41)
[2017-08-14] MEDS: predniSONE 20 MG TAB PO SCH (08:26)
[2017-08-14] MEDS: PANTOPRAZOLE 40MG TAB (PROTONIX) PO SCH (08:26)
[2017-08-14] MEDS: BUDESONIDE 0.5 MG/2 ML INHALATION SUSPENSION INH SCH (08:33)
[2017-08-14] MEDS: SYMBICORT 160/4.5MCG INHALER 6GM INH SCH ×2 (09:00→20:06)
--- NOTE | 2017-08-14 11:00 | IPNPDOC ---
Subjective Date Seen The patient was seen on 08/14/17. Subjective Chief Complaint/HPI The patient is a 52-year-old male admitted with a reason for visit of Bronchitis , Copd Exacerbat, Fever, Hypoxia. Events since last encounter Significant improvement in breathing symptoms. Patient denies c/o. Constitutional: Denies: Chills, Fever, Night Sweats ENT: Denies: Head Aches, Ear Pain, Dysphagia Pulmonary: Reports: Dyspnea, Cough Gastrointestinal: Denies: Nausea, Vomiting, Abdominal Pain, Diarrhea, Constipation Genitourinary: Denies: Dysuria, Frequency, Incontinence, Retention Hematologic: Denies: Bruising, Bleeding Excessively Objective Physical Examination General Exam: Positive: Alert, Cooperative Eye Exam: Positive: PERRLA, Conjunctiva & lids normal ENT Exam: Positive: Atraumatic Neck Exam: Positive: Supple Chest Exam: Negative: Rales, Wheezing Heart Exam: Positive: Rate Normal Abdomen Exam: Positive: Normal bowel sounds, Soft, Tenderness Extremity Exam: Negative: Clubbing, Cyanosis Neuro Exam: Positive: Normal Gait Assessment /Plan Problems (1) COPD exacerbation Status: Acute Response to Treatment: Improving Problem Text: 08/14/2017: prednisone 40 mg po daily. Wean oxygen today. anticipate DC home in 24-48 hours. PT eval today 08/13/17: + RSV on respiratory panel. Solumedrol IV q 6 hrs and nebs q 4 hrs. monitor. Maintain oxygen. Better today. CXR showed no worsening yesterday. he looks comfortable, no apparent distress. scattered mild wheezing, no flaring and no retractions. (2) RSV (respiratory syncytial virus infection) Status: Acute Problem Specific Plan: Consult Specialist (3) Multiple sclerosis Status: Chronic Response to Treatment: Stable Plan/VTE VTE Prophylaxis Ordered?: Yes (Lovenox) Plan Anticipated Discharge: Home VS, I&O, 24H, Fishbone Vital Signs/I&O Vital Signs Date Time Temp Pulse Resp B/P (MAP) Pulse Ox O2 Delivery O2 Flow Rate FiO2 08/14/17 06:00 99.1 80 18 113/68 (83) 92 Nasal Cannula 2.0 08/12/17 16:00 40 I&O- Last 24 Hours up to 6 AM 08/14/17 06:00 Intake Total 760 ml Output Total 725 ml Balance 35 ml Laboratory Data 24H LABS Laboratory Tests 2 08/14/17 06:29: Nucleated Red Blood Cells % (auto) 0.0, Neutrophils 74, Band Neutrophils 3, Lymphocytes (Manual) 13L, Monocytes (Manual) 7, Atypical Lymphocytes 3, Platelet Estimate NORMAL, Red Blood Cell Morphology NORMAL, Anion Gap 5L, Glomerular Filtration Rate > 60.0, Blood Urea Nitrogen 23#H, Creatinine 0.66L, Sodium Level 144, Potassium Level 3.7, Chloride Level 104, Carbon Dioxide Level 35H, Calcium Level 7.8L CBC/BMP Laboratory Tests 08/14/17 06:29 Red Blood Count 4.19 L, Mean Corpuscular Volume 93.1, Mean Corpuscular Hemoglobin 31.0, Mean Corpuscular Hemoglobin Concent 33.3, Red Cell Distribution Width 12.8, Calcium Level 7.8 L Microbiology Microbiology 08/10/17 Blood Culture - Preliminary, Resulted No Growth after 72 hours. All specime... 08/10/17 Blood Culture - Preliminary, Resulted No Growth after 72 hours. All specime... 08/12/17 MRSA Screen - Final, Complete 08/12/17 Respiratory Virus Panel (PCR) ([facility]) - Final, Complete Respiratory Syncytial Virus 08/10/17 Influenza Virus Type A Antigen - Final, Complete 08/10/17 Influenza Virus Type B Antigen - Final, Complete Pilar Murphy Aug 14, 2017 11:00
[2017-08-14] MEDS: TIOTROPIUM INHALER/CAPSULE (SPIRIVA) INH SCH (11:49)
[2017-08-15] MEDS: IPRATROPIUM 0.5MG/ALBUTEROL 2.5MG INH SOL UD 3ML (DUONEB)(J7620) NEB SCH ×4 (03:51→11:50)
[2017-08-15] MEDS: SLF 3 ML SYR IV SCH (05:24)
[2017-08-15 06:00] VITALS: BP 117/77
[2017-08-15 07:12] LABS: MEAN CORPUSCULAR HEMOGLOBIN 30.9 pg (27.0-33.0); MEAN CORPUSCULAR HGB CONC 32.3 g/dl (32.0-36.5); MEAN CORPUSCULAR VOLUME 95.5 fl (80.0-96.0); PLATELET COUNT, AUTOMATED 250 10^3/uL (150-450); RED CELL DISTRIBUTION WIDTH 12.9 % (11.5-14.5); WHITE BLOOD COUNT 8.1 10^3/uL (4.0-10.0)
[2017-08-15 07:22] LABS: ADD MANUAL DIFFER YES; DIFF SLIDE NUMBER 21; POSITIVE MORPH POS FLAG
[2017-08-15 07:27] LABS: ANION GAP 3 MEQ/L (8-16); BLOOD UREA NITROGEN 30 MG/DL (7-18); CALCIUM LEVEL 7.8 MG/DL (8.5-10.1); CARBON DIOXIDE LEVEL 37 MEQ/L (21-32); CHLORIDE LEVEL 107 MEQ/L (98-107); CREATININE FOR GFR 0.68 MG/DL (0.70-1.30); GLOMERULAR FILTRATION RATE > 60.0 (>56); GLUCOSE, FASTING 86 MG/DL (70-105); POTASSIUM SERUM 3.9 MEQ/L (3.5-5.1); SODIUM LEVEL 147 MEQ/L (136-145)
[2017-08-15 07:50] LABS: EOSINOPHILS 1 % (0-5)
[2017-08-15] MEDS: PANTOPRAZOLE 40MG TAB (PROTONIX) PO SCH (07:54)
[2017-08-15] MEDS: SENOKOT S TAB PO SCH (07:54)
[2017-08-15] MEDS: predniSONE 20 MG TAB PO SCH (07:54)
[2017-08-15] MEDS: ENOXAPARIN 40 MG/0.4 ML SYRINGE (J1650) SC SCH (07:55)
[2017-08-15] MEDS: TIOTROPIUM INHALER/CAPSULE (SPIRIVA) INH SCH (08:00)
[2017-08-15] MEDS: SYMBICORT 160/4.5MCG INHALER 6GM INH SCH (09:12)
[2017-08-15] MEDS ORDERED: SYMB16INH INH (09:38)
[2017-08-15] MEDS ORDERED: PRED20TA PO (09:38)
[2017-08-16] MEDS ORDERED: predniSONE 20 MG TAB PO ONE (09:00)
--- NOTE | 2017-08-17 17:56 | DSES ---
DATE OF ADMISSION: 08/10/2017 DATE OF DISCHARGE: 08/15/2017 ATTENDING PHYSICIAN: Dr. Rocky Randolph. PRIMARY CARE PROVIDER: Gloria Arredondo HISTORY OF PRESENT ILLNESS: This is a 52-year-old gentleman who presented to the emergency department at [facility] for significant chest congestion, cough and shortness of breath. The patient was noted to have fever of 103.3, and hypoxia on presentation. The patient subsequently admitted to the family medicine service. HOSPITAL COURSE: The patient was placed on intravenous (IV) Solu-Medrol, nebulizer treatments, ceftriaxone and azithromycin for pneumonia prophylaxis. A nicotine patch was also placed for nicotine withdrawal. He was given a bolus of IV fluid secondary to some hypotension on presentation. The patient showed some mild volume overload on the second day of admission. IV fluids were weaned down. His oxygen supplementation was provided to keep saturations between 88-92%. On 08/12, the patient developed sudden onset of acute respiratory distress. He was transitioned to the intensive care unit and at that point, the patient appeared to have some significant fluid volume overload. He was subsequently diuresed with IV Lasix, and the patient tolerated that well with a one plus liter volume deficit. Over the last 48 hours, the patient has continued to improve. He was transitioned to the medical floor within 12 hours of his intensive care unit (ICU) admission. He had been weaned off his oxygen. He has passed his physical therapy evaluation, and has been transitioned over to oral steroids. The patient's IV antibiotics were stopped, and he did have a respiratory panel that did return positive for respiratory syncytial virus (RSV). PHYSICAL EXAMINATION: On physical examination today, vital signs are stable. He is afebrile. Oxygen saturation is 91% on room air. HEENT: Neck is supple without lymphadenopathy or jugular venous distention (JVD). CARDIOVASCULAR: Heart rate and rhythm are regular. PULMONARY: Lungs prove an inspiratory wheeze to the right lower lobe today; otherwise, lungs are clear. Bilateral lower extremities are without any edema. ABDOMEN: Soft, nontender, with positive bowel sounds times all four quadrants. NEUROLOGIC: The patient is alert and oriented times three. No visible tremors appreciated. PSYCHIATRIC: Affect is appropriate. Conversation is congruent. Patient maintains eye contact. All questions were answered accordingly. ASSESSMENT/DISCHARGE DIAGNOSES: 1. Viral pneumonitis secondary to respiratory syncytial virus. 2. Exacerbation of chronic obstructive pulmonary disease (COPD). SECONDARY DIAGNOSIS: History of multiple sclerosis and chronic limb pain due to multiple sclerosis. PLAN: The patient will be discharged to home today. He will followup with his PCP within the next 5-7 days. He will followup with pulmonology, Dr. Whyte, at the end of August per her request. Diet is as tolerated. Activity is as tolerated. MEDICATIONS: - Symbicort 160/4.5 mcg two puffs twice a day - prednisone 20 mg tablet taper dose has been ordered; 40 mg by mouth daily for three days, 20 mg daily for three days, 10 mg daily for three days - hydrocodone with acetaminophen 7.5/325 one tablet by mouth every six hours as needed for pain - Ventolin HFA one puff every four hours as needed for shortness of breath - carisoprodol 350 mg by mouth three times a day as needed for muscle spasm - Spiriva HandiHaler one inhalation daily The patient is discharged in stable and satisfactory condition with no further questions at the time of discharge. Consultation completed by Dr. Anurag Whyte.
== END 2017-08-15 13:20 | disposition home or self-care (01) | DRG 193 ==
LOC: M ED 16:07 → M ED INP 19:40 → M MS5PR 22:20 → M ICU 08-12 15:45 → M MS5PR 08-13 21:00
PROVIDERS: ADMIT Family Medicine; ATTEND Family Medicine
DX: J12.1 Respiratory syncytial virus pneumonia (principal); J96.02 Acute respiratory failure with hypercapnia; J44.1 Chronic obstructive pulmonary disease with (acute) exacerbation; E87.2 Acidosis; J44.0 Chronic obstructive pulmonary disease with (acute) lower respiratory infection; F17.210 Nicotine dependence, cigarettes, uncomplicated; Z79.899 Other long term (current) drug therapy

== ENCOUNTER → 2017-09-17 | Outpatient (REF) | payer MEDICARE, MEDICAID ==
[2017-09-17 20:39] LABS: HEMATOCRIT 46.8 % (42.0-52.0); HEMOGLOBIN 15.3 g/dl (14.0-18.0); MEAN CORPUSCULAR HEMOGLOBIN 31.5 pg (27.0-33.0); MEAN CORPUSCULAR HGB CONC 32.7 g/dl (32.0-36.5); MEAN CORPUSCULAR VOLUME 96.5 fl (80.0-96.0); PLATELET COUNT, AUTOMATED 319 10^3/uL (150-450); RED BLOOD COUNT 4.85 10^6/uL (4.30-6.10); RED CELL DISTRIBUTION WIDTH 13.4 % (11.5-14.5); WHITE BLOOD COUNT 8.3 10^3/uL (4.0-10.0)
[2017-09-17 20:57] LABS: FERRITIN 70 NG/ML (26-388); IRON (FE) 123 UG/DL (65-175); PERCENT SATURATION 34.9 % (19.7-50.0); TOTAL IRON BINDING CAPACITY 352 UG/DL (250-450)
[2017-09-17 21:03] LABS: VITAMIN B12 LEVEL 774 PG/ML
[2017-09-17 21:58] LABS: TOTAL 25(OH) VITAMIN D 8.5 NG/ML (30.0-100.0)
== END ==
LOC: M SFHCADAM 16:01
DX: E55.9 Vitamin D deficiency, unspecified (principal); D64.9 Anemia, unspecified
CPT/HCPCS: 82746

== ENCOUNTER → 2018-03-19 | Outpatient (REF) | payer MEDICARE, MEDICAID ==
[2018-03-19 20:32] LABS: TOTAL 25(OH) VITAMIN D 73.4 NG/ML (30.0-100.0)
== END ==
LOC: M SFHCADAM 11:43
DX: E55.9 Vitamin D deficiency, unspecified (principal); Z79.899 Other long term (current) drug therapy
CPT/HCPCS: 82306

== ENCOUNTER → 2018-12-23 | Outpatient (REF) | payer MEDICARE, MEDICAID ==
[~2018-12-23] MED LIST changes: -/MOXI40TA OR; +AVEL1TAB2 OR; +CARI1TAB7 PO; +HYDR-3716 PO; +PRED-351 PO; -PRED10TA PO; +SYMB16INH INH
[2018-12-23 20:11] LABS: BASO # 0.2 10^3/uL (0.0-0.2); BASO % 1.6 % (0.0-1.0); EOS # 0.2 10^3/uL (0.0-0.50); EOS % 1.9 % (0.0-3.0); HEMATOCRIT 48.6 % (42.0-52.0); HEMOGLOBIN 15.7 g/dl (13.5-17.5); LYMPH # 2.6 10^3/uL (1.5-4.5); LYMPH % 27.8 % (24.0-44.0); MEAN CORPUSCULAR HEMOGLOBIN 30.7 pg (27.0-33.0); MEAN CORPUSCULAR HGB CONC 32.3 g/dl (32.0-36.5); MEAN CORPUSCULAR VOLUME 94.9 fl (80.0-96.0); MONO # 0.5 10^3/uL (0.0-0.8); MONO % 5.6 % (0.0-5.0); NEUTROPHILS # 5.8 10^3/uL (1.8-7.7); NEUTROPHILS % 62.9 % (36.0-66.0); PLATELET COUNT, AUTOMATED 285 10^3/uL (150-450); RED BLOOD COUNT 5.12 10^6/uL (4.30-6.10); WHITE BLOOD COUNT 9.2 10^3/uL (4.0-10.0)
[2018-12-23 20:21] LABS: ALBUMIN 4.4 GM/DL (3.2-5.2); ALT/SGPT 21 U/L (12-78); BILIRUBIN,TOTAL 1.1 MG/DL (0.2-1.0); BLOOD UREA NITROGEN 17 MG/DL (7-18); CALCIUM LEVEL 9.2 MG/DL (8.5-10.1); CARBON DIOXIDE LEVEL 32 MEQ/L (21-32); CHLORIDE LEVEL 105 MEQ/L (98-107); CHOLESTEROL LEVEL 137 MG/DL (<200); CHOLESTEROL RISK RATIO 2.584 (<5); FREE T4 1.47 NG/DL (0.76-1.46); GLOMERULAR FILTRATION RATE > 60.0 (>56); GLUCOSE, FASTING 69 MG/DL (70-100); HDL CHOLESTEROL 53 MG/DL (>40); LDL CHOLESTEROL 72 MG/DL (<100); NON-HDL-C 84 MG/DL; POTASSIUM SERUM 5.5 MEQ/L (3.5-5.1); SODIUM LEVEL 139 MEQ/L (136-145); TOTAL PROTEIN 7.2 GM/DL (6.4-8.2); TRIGLYCERIDES LEVEL 61 MG/DL (<150)
[2018-12-23 20:22] LABS: TOTAL 25(OH) VITAMIN D 13.4 NG/ML (30.0-100.0)
== END ==
LOC: M SFHCADAM 14:58
PROVIDERS: ATTEND Physician Assistant Medical
DX: Z00.00 Encounter for general adult medical examination without abnormal findings (principal); G35 Multiple sclerosis; J44.9 Chronic obstructive pulmonary disease, unspecified; F17.210 Nicotine dependence, cigarettes, uncomplicated; E55.9 Vitamin D deficiency, unspecified

== ENCOUNTER → 2022-08-30 | Outpatient (CLI) | payer MEDICARE, MEDICAID | LOC: M ADAMS 14:59 | PROVIDERS: ATTEND Physician Assistant Medical | DX: J44.9 Chronic obstructive pulmonary disease, unspecified (principal) ==

== ENCOUNTER → 2022-08-30 | Outpatient (REF) | payer MEDICARE, MEDICAID ==
[2022-08-30 16:06] LABS: BASO # 0.1 10^3/uL (0.0-0.2); BASO % 1.2 % (0.0-1.0); EOS # 0.2 10^3/uL (0.0-0.5); EOS % 1.7 % (0.0-3.0); HEMATOCRIT 47.5 % (42.0-52.0); LYMPH # 2.2 10^3/uL (1.5-5.0); MEAN CORPUSCULAR HEMOGLOBIN 31.9 pg (27.0-33.0); MEAN CORPUSCULAR HGB CONC 31.6 g/dl (32.0-36.5); MEAN CORPUSCULAR VOLUME 101.1 fl (80.0-96.0); MONO # 0.7 10^3/uL (0.0-0.8); MONO % 7.4 % (2.0-8.0); NEUTROPHILS # 5.9 10^3/uL (1.5-8.5); NEUTROPHILS % 65.4 % (36.0-66.0); PLATELET COUNT, AUTOMATED 338 10^3/uL (150-450); WHITE BLOOD COUNT 9.1 10^3/uL (4.0-10.0)
[2022-08-30 16:40] LABS: ALBUMIN 4.1 G/DL (3.2-5.2); ALKALINE PHOSPHATASE 65 U/L (46-116); ALT/SGPT 23 U/L (7.0-40); AST/SGOT 41 U/L (<34); BLOOD UREA NITROGEN 19 MG/DL (9-23); CALCIUM LEVEL 10.1 MG/DL (8.5-10.1); CARBON DIOXIDE LEVEL 30 MMOL/L (20-31); CHLORIDE LEVEL 102 MMOL/L (98-107); CHOLESTEROL LEVEL 129 MG/DL (<200); CHOLESTEROL RISK RATIO 2.57 (<5); CREATININE FOR GFR 0.84 MG/DL (0.70-1.30); GLOMERULAR FILTRATION RATE > 60.0 (>56); GLUCOSE, FASTING 84 MG/DL (60-100); HDL CHOLESTEROL 50.1 MG/DL (>40); LDL CHOLESTEROL 60.9 MG/DL (<100); NON-HDL-C 79 MG/DL; POTASSIUM SERUM 5.9 MMOL/L (3.5-5.1); SODIUM LEVEL 140 MMOL/L (136-145); TOTAL PROTEIN 7.1 G/DL (5.7-8.2); TRIGLYCERIDES LEVEL 90 MG/DL (<150)
[2022-08-30 16:41] LABS: THYROID STIMULATING HORMONE 1.983 uIU/ML (0.55-4.78); TOTAL 25(OH) VITAMIN D 67.2 NG/ML (20.0-100.0)
== END ==
LOC: M SFHCADAM 14:52
PROVIDERS: ATTEND Physician Assistant Medical
DX: J44.9 Chronic obstructive pulmonary disease, unspecified (principal); E55.9 Vitamin D deficiency, unspecified; Z13.220 Encounter for screening for lipoid disorders; Z13.0 Encounter for screening for diseases of the blood and blood-forming organs and certain disorders involving the immune mechanism; Z79.899 Other long term (current) drug therapy

== ENCOUNTER 2023-10-31 14:49 | Inpatient (IN) | payer MEDICARE, MEDICAID ==
[~2023-10-31] VITALS: Ht 165.1 cm; Wt 63.4 kg
[2023-10-31] MEDS: IPRATROPIUM 0.5MG/ALBUTEROL 2.5MG INH SOL UD 3ML (DUONEB) NEB ONE (15:09)
[2023-10-31 15:33] LABS: BASO % 0.2 % (0.0-1.0); EOS # 0.2 10^3/uL (0.0-0.5); EOS % 1.2 % (0.0-3.0); LYMPH # 0.9 10^3/uL (1.5-5.0); MEAN CORPUSCULAR HEMOGLOBIN 32.1 pg (27.0-33.0); MEAN CORPUSCULAR HGB CONC 32.7 g/dl (32.0-36.5); MEAN CORPUSCULAR VOLUME 98.4 fl (80.0-96.0); MONO # 1.1 10^3/uL (0.0-0.8); MONO % 6.1 % (2.0-8.0); NEUTROPHILS # 15.4 10^3/uL (1.5-8.5); NEUTROPHILS % 86.7 % (36.0-66.0); PLATELET COUNT, AUTOMATED 300 10^3/uL (150-450); RED BLOOD COUNT 4.98 10^6/uL (4.30-6.10); WHITE BLOOD COUNT 17.8 10^3/uL (4.0-10.0)
[2023-10-31 15:33] LABS: ABG BASE EXCESS 4.4 (-2.0-2.0); ABG HCO3 32.9 MMOL/L (22.0-26.0); ABG O2 SATURATION 98.8 % (95.0-99.0); ABG PARTIAL PRESSURE O2 152.5 mmHg (75.0-100.0); ABG STANDARD HCO3 28.4 MMOL/L. (22.0-26.0); ABG pH (ARTERIAL) 7.318 UNITS (7.350-7.450)
[2023-10-31 15:36] LABS: ABG PARTIAL PRESSURE CO2 65.7 mmHg (35.0-45.0)
[2023-10-31 15:46] LABS: INR 0.98; PARTIAL THROMBOPLASTIN TIME 20.5 SECONDS (24.8-34.2); PROTHROMBIN TIME 12.7 SECONDS (12.5-14.5)
[2023-10-31] MEDS: methylPREDNISolone 125MG 2ML VIAL IV ONE (15:51)
[2023-10-31] MEDS: IPRATROPIUM 0.5MG/ALBUTEROL 2.5MG INH SOL UD 3ML (DUONEB) NEB PRN (15:55)
[2023-10-31 16:03] LABS: ALKALINE PHOSPHATASE 48 U/L (46-116); ALT/SGPT 64 U/L (7.0-40); AST/SGOT 58 U/L (<34); BILIRUBIN,DIRECT 0.4 MG/DL (<0.4); BILIRUBIN,TOTAL 0.8 MG/DL (0.3-1.2); BLOOD UREA NITROGEN 24 MG/DL (9-23); CALCIUM LEVEL 8.7 MG/DL (8.5-10.1); CARBON DIOXIDE LEVEL 33 MMOL/L (20-31); CHLORIDE LEVEL 97 MMOL/L (98-107); CK-MB VALUE MASS 25.8 NG/ML (<3.6); CPK CREATINE PHOSPHOKINASE 739 U/L (46-171); GLOMERULAR FILTRATION RATE > 60.0 (>56); GLUCOSE, FASTING 144 MG/DL (60-100); MB/CK RELATIVE INDEX 3.49 (< OR =4); POTASSIUM SERUM 4.6 MMOL/L (3.5-5.1); SODIUM LEVEL 133 MMOL/L (136-145); TOTAL PROTEIN 7.1 G/DL (5.7-8.2)
[2023-10-31 16:05] LABS: FREE T4 0.82 NG/DL (0.89-1.76); THYROID STIMULATING HORMONE 1.009 uIU/ML (0.55-4.78)
[2023-10-31 17:15] LABS: ABG BASE EXCESS 3.4 (-2.0-2.0); ABG HCO3 31.1 MMOL/L (22.0-26.0); ABG O2 SATURATION 90.1 % (95.0-99.0); ABG PARTIAL PRESSURE CO2 59.6 mmHg (35.0-45.0); ABG PARTIAL PRESSURE O2 56.2 mmHg (75.0-100.0); ABG STANDARD HCO3 27.3 MMOL/L. (22.0-26.0); ABG pH (ARTERIAL) 7.336 UNITS (7.350-7.450)
[2023-10-31 17:56] LABS: CK-MB VALUE MASS 22.5 NG/ML (<3.6)
[2023-10-31 17:57] LABS: MB/CK RELATIVE INDEX 3.54 (< OR =4)
[2023-10-31] MEDS ORDERED: ISOVUE-370 76% 100ML VIAL As Ordered ONE (18:37)
[2023-10-31 19:43] LABS: PROCALCITONIN <0.04 ng/ml
[2023-10-31] MEDS ORDERED: ALBU8.5H INH (19:56)
[2023-10-31] MEDS ORDERED: HYDR-3719 PO (19:56)
[2023-10-31] MEDS ORDERED: METH4PACK PO (19:56)
[2023-10-31] MEDS ORDERED: INCR1INH INH (19:56)
[2023-10-31] MEDS ORDERED: NIRM1TAB14 PO (19:56)
[2023-10-31] MEDS ORDERED: HOME MED LIST COMPLETE! XX SCH (20:05)
[2023-10-31] MEDS: IPRATROPIUM 0.5MG/ALBUTEROL 2.5MG INH SOL UD 3ML (DUONEB) NEB SCH (20:08)
[2023-10-31] MEDS ORDERED: ALBUTEROL 90 MCG/ACT 8GM HFA INHALER INH PRN (20:35)
[2023-10-31] MEDS: guaiFENesin 200 MG TAB PO SCH (21:33)
[2023-10-31] MEDS: ACETAMINOPHEN TAB 650MG DOSE (2X325MG) PO PRN (21:34)
[2023-10-31] MEDS: AZITHROMYCIN 250MG TABLET PO SCH (21:34)
[2023-10-31 22:26] VITALS: BP 120/74; O2SAT 93
[2023-10-31] MEDS: NS 1,000 ML IV SCH (22:35)
[2023-10-31 23:35] VITALS: O2SAT 95
[2023-11-01] VITALS (25 sets, daily range): BP systolic 120–147; BP diastolic 69–81; TEMP 97.3–98.5; O2SAT 88–97
[2023-11-01] MEDS: methylPREDNISolone 125MG 2ML VIAL IV SCH (00:08)
[2023-11-01 05:46] LABS: BASO % 0.2 % (0.0-1.0); HEMATOCRIT 45.9 % (42.0-52.0); HEMOGLOBIN 14.7 g/dl (13.5-17.5); LYMPH # 0.6 10^3/uL (1.5-5.0); LYMPH % 5.2 % (24.0-44.0); MEAN CORPUSCULAR HEMOGLOBIN 31.3 pg (27.0-33.0); MEAN CORPUSCULAR VOLUME 97.7 fl (80.0-96.0); MONO # 0.5 10^3/uL (0.0-0.8); NEUTROPHILS # 10.5 10^3/uL (1.5-8.5); NEUTROPHILS % 90.1 % (36.0-66.0); PLATELET COUNT, AUTOMATED 238 10^3/uL (150-450); WHITE BLOOD COUNT 11.7 10^3/uL (4.0-10.0)
[2023-11-01 06:05] LABS: CPK CREATINE PHOSPHOKINASE 478 U/L (46-171)
[2023-11-01 06:06] LABS: ALBUMIN 3.3 G/DL (3.2-5.2); ALKALINE PHOSPHATASE 40 U/L (46-116); ALT/SGPT 80 U/L (7.0-40); AST/SGOT 54 U/L (<34); BILIRUBIN,DIRECT 0.4 MG/DL (<0.4); BILIRUBIN,TOTAL 0.7 MG/DL (0.3-1.2); BLOOD UREA NITROGEN 23 MG/DL (9-23); CALCIUM LEVEL 8.7 MG/DL (8.5-10.1); CARBON DIOXIDE LEVEL 35 MMOL/L (20-31); CHLORIDE LEVEL 101 MMOL/L (98-107); CREATININE FOR GFR 0.64 MG/DL (0.70-1.30); GLOMERULAR FILTRATION RATE > 60.0 (>56); GLUCOSE, FASTING 131 MG/DL (60-100); MAGNESIUM LEVEL 2.4 MG/DL (1.8-2.4); POTASSIUM SERUM 4.7 MMOL/L (3.5-5.1); SODIUM LEVEL 139 MMOL/L (136-145); TOTAL PROTEIN 5.9 G/DL (5.7-8.2)
[2023-11-01] MEDS: TIOTROPIUM INHALER/CAPSULE (SPIRIVA) INH SCH (07:41)
[2023-11-01] MEDS: PANTOPRAZOLE 40MG VIAL IV SCH (09:01)
[2023-11-01 11:04] LABS: HEPATITIS B SURFACE ANTIBODY NEGATIVE (POSITIVE)
[2023-11-01 11:36] LABS: HEPATITIS C VIRUS ABY INDEX 0.03 INDEX (<0.8)
[2023-11-01 11:37] LABS: HEPATITIS B CORE ANTIBODY IGM NEGATIVE (NEGATIVE)
[2023-11-01] MEDS: IPRATROPIUM 0.5MG/ALBUTEROL 2.5MG INH SOL UD 3ML (DUONEB) NEB PRN (16:06)
[2023-11-01] MEDS: ENOXAPARIN 40MG/0.4ML SYRINGE (J1650 PER 10MG) SC SCH (20:41)
[2023-11-02] VITALS (20 sets, daily range): BP systolic 100–141; BP diastolic 61–85; TEMP 97.5–99.8; O2SAT 88–98
[2023-11-02 05:38] LABS: BASO % 0.1 % (0.0-1.0); HEMATOCRIT 43.4 % (42.0-52.0); LYMPH # 0.5 10^3/uL (1.5-5.0); MEAN CORPUSCULAR HEMOGLOBIN 31.9 pg (27.0-33.0); MEAN CORPUSCULAR HGB CONC 32.3 g/dl (32.0-36.5); MEAN CORPUSCULAR VOLUME 98.9 fl (80.0-96.0); MONO # 0.4 10^3/uL (0.0-0.8); MONO % 3.6 % (2.0-8.0); NEUTROPHILS # 10.3 10^3/uL (1.5-8.5); NEUTROPHILS % 91.7 % (36.0-66.0); PLATELET COUNT, AUTOMATED 241 10^3/uL (150-450); RED BLOOD COUNT 4.39 10^6/uL (4.30-6.10); WHITE BLOOD COUNT 11.3 10^3/uL (4.0-10.0)
[2023-11-02 06:36] LABS: ALBUMIN 2.9 G/DL (3.2-5.2); ALKALINE PHOSPHATASE 33 U/L (46-116); ALT/SGPT 147 U/L (7.0-40); AST/SGOT 96 U/L (<34); BILIRUBIN,DIRECT 0.5 MG/DL (<0.4); BILIRUBIN,TOTAL 0.8 MG/DL (0.3-1.2); BLOOD UREA NITROGEN 32 MG/DL (9-23); CALCIUM LEVEL 8.2 MG/DL (8.5-10.1); CARBON DIOXIDE LEVEL 36 MMOL/L (20-31); CHLORIDE LEVEL 102 MMOL/L (98-107); GLOMERULAR FILTRATION RATE > 60.0 (>56); GLUCOSE, FASTING 108 MG/DL (60-100); MAGNESIUM LEVEL 2.5 MG/DL (1.8-2.4); POTASSIUM SERUM 4.6 MMOL/L (3.5-5.1); SODIUM LEVEL 138 MMOL/L (136-145); TOTAL PROTEIN 5.4 G/DL (5.7-8.2)
[2023-11-02] MEDS: FUROSEMIDE 20MG/2ML VIAL IV STA (09:40)
[2023-11-02] MEDS: methylPREDNISolone 125MG 2ML VIAL IV SCH (09:40)
[2023-11-02 10:36] LABS: ABG BASE EXCESS 10.1 (-2.0-2.0); ABG O2 SATURATION 90.5 % (95.0-99.0); ABG PARTIAL PRESSURE CO2 57.8 mmHg (35.0-45.0); ABG PARTIAL PRESSURE O2 54.8 mmHg (75.0-100.0); ABG STANDARD HCO3 33.6 MMOL/L. (22.0-26.0); ABG TOTAL CO2 38.8 MMOL/L (22.0-29.0); ABG pH (ARTERIAL) 7.424 UNITS (7.350-7.450)
[2023-11-02] MEDS ORDERED: NICOTINE 21MG/24HR 1 EA TRANSDERMAL TD SCH (12:25)
[2023-11-02] MEDS ORDERED: PROHANCE 279.3MG/ML 15ML VIAL As Ordered ONE (15:44)
[2023-11-02] MEDS: ANEXSIA, NORCO 7.5MG/325MG TABLET(HYDROCODONE/APAP) PO PRN (23:41)
[2023-11-03] VITALS (27 sets, daily range): BP systolic 118–141; BP diastolic 68–85; TEMP 97–98.9; O2SAT 78–96
[2023-11-03 00:17] LABS: AMPHETAMINES LEVEL URINE NEGATIVE (NEGATIVE); BARBITURATES URINE NEGATIVE (NEGATIVE); BENZODIAZEPINES URINE NEGATIVE (NEGATIVE); COCAINE METABOLITE URINE NEGATIVE (NEGATIVE); METHADONE URINE NEGATIVE (NEGATIVE); OPIATES URINE NEGATIVE (NEGATIVE); PHENCYCLIDINE URINE NEGATIVE (NEGATIVE)
[2023-11-03 00:48] LABS: CANNABINOIDS URINE POSITIVE (NEGATIVE)
[2023-11-03] MEDS: methylPREDNISolone 40MG 1ML VIAL IV SCH (05:19)
[2023-11-03 05:42] LABS: BASO % 0.1 % (0.0-1.0); HEMATOCRIT 44.9 % (42.0-52.0); HEMOGLOBIN 14.6 g/dl (13.5-17.5); LYMPH # 0.6 10^3/uL (1.5-5.0); LYMPH % 3.6 % (24.0-44.0); MEAN CORPUSCULAR HEMOGLOBIN 31.7 pg (27.0-33.0); MEAN CORPUSCULAR HGB CONC 32.5 g/dl (32.0-36.5); MEAN CORPUSCULAR VOLUME 97.6 fl (80.0-96.0); MONO # 0.9 10^3/uL (0.0-0.8); MONO % 5.9 % (2.0-8.0); NEUTROPHILS # 13.8 10^3/uL (1.5-8.5); NEUTROPHILS % 89.7 % (36.0-66.0); PLATELET COUNT, AUTOMATED 260 10^3/uL (150-450); WHITE BLOOD COUNT 15.4 10^3/uL (4.0-10.0)
[2023-11-03 05:52] LABS: ALKALINE PHOSPHATASE 37 U/L (46-116); ALT/SGPT 244 U/L (7.0-40); AST/SGOT 108 U/L (<34); BILIRUBIN,DIRECT 0.6 MG/DL (<0.4); BILIRUBIN,TOTAL 1.1 MG/DL (0.3-1.2); BLOOD UREA NITROGEN 40 MG/DL (9-23); CALCIUM LEVEL 8.7 MG/DL (8.5-10.1); CARBON DIOXIDE LEVEL 38 MMOL/L (20-31); CHLORIDE LEVEL 100 MMOL/L (98-107); CREATININE FOR GFR 0.65 MG/DL (0.70-1.30); GLOMERULAR FILTRATION RATE > 60.0 (>56); GLUCOSE, FASTING 113 MG/DL (60-100); MAGNESIUM LEVEL 2.5 MG/DL (1.8-2.4); POTASSIUM SERUM 4.7 MMOL/L (3.5-5.1); SODIUM LEVEL 141 MMOL/L (136-145); TOTAL PROTEIN 5.4 G/DL (5.7-8.2)
[2023-11-03 07:19] LABS: C REACTIVE PROTEIN QUANTITATIV < 0.40 MG/DL (<1.0)
[2023-11-03 07:21] LABS: C REACTIVE PROTEIN QUANTITATIV < 0.40 MG/DL (<1.0)
[2023-11-03 07:23] LABS: C REACTIVE PROTEIN QUANTITATIV < 0.40 MG/DL (<1.0)
[2023-11-03] MEDS: SENOKOT S TAB PO SCH (09:00)
[2023-11-03] MEDS: MULTIVITAMINS/MINERALS THERAP 1 TAB PO SCH (12:12)
[2023-11-03] MEDS ORDERED: MOM 30ML SUSPENSION UDC PO PRN (12:20)
[2023-11-03] MEDS ORDERED: MIRALAX *UNIT DOSE* 17GM PACKET PO PRN (12:20)
[2023-11-03] MEDS: zolPIDEM TARTRATE 5 MG TAB PO PRN (23:38)
[2023-11-04] VITALS (10 sets, daily range): BP systolic 115–141; BP diastolic 68–90; TEMP 97.2–98.1; O2SAT 90–96
[2023-11-04 05:40] LABS: HEMATOCRIT 47.1 % (42.0-52.0); LYMPH # 0.6 10^3/uL (1.5-5.0); LYMPH % 4.2 % (24.0-44.0); MEAN CORPUSCULAR HEMOGLOBIN 31.4 pg (27.0-33.0); MEAN CORPUSCULAR HGB CONC 31.8 g/dl (32.0-36.5); MEAN CORPUSCULAR VOLUME 98.5 fl (80.0-96.0); MONO # 1.2 10^3/uL (0.0-0.8); MONO % 8.9 % (2.0-8.0); NEUTROPHILS # 11.7 10^3/uL (1.5-8.5); NEUTROPHILS % 86.1 % (36.0-66.0); PLATELET COUNT, AUTOMATED 280 10^3/uL (150-450); RED BLOOD COUNT 4.78 10^6/uL (4.30-6.10); WHITE BLOOD COUNT 13.7 10^3/uL (4.0-10.0)
[2023-11-04 06:11] LABS: ALKALINE PHOSPHATASE 38 U/L (46-116); ALT/SGPT 245 U/L (7.0-40); AST/SGOT 62 U/L (<34); BILIRUBIN,DIRECT 0.5 MG/DL (<0.4); BILIRUBIN,TOTAL 1.1 MG/DL (0.3-1.2); BLOOD UREA NITROGEN 36 MG/DL (9-23); CALCIUM LEVEL 8.5 MG/DL (8.5-10.1); CARBON DIOXIDE LEVEL 37 MMOL/L (20-31); CHLORIDE LEVEL 100 MMOL/L (98-107); GLOMERULAR FILTRATION RATE > 60.0 (>56); GLUCOSE, FASTING 95 MG/DL (60-100); MAGNESIUM LEVEL 2.5 MG/DL (1.8-2.4); POTASSIUM SERUM 4.7 MMOL/L (3.5-5.1); SODIUM LEVEL 141 MMOL/L (136-145); TOTAL PROTEIN 5.5 G/DL (5.7-8.2)
[2023-11-04] MEDS: THIAMINE 100 MG TAB PO SCH (08:32)
[2023-11-04] MEDS: FUROSEMIDE 20MG/2ML VIAL IV STA (10:16)
[2023-11-04] MEDS: RAMELTEON 8 MG TAB (ROZEREM) PO PRN (20:22)
[2023-11-05] VITALS (8 sets, daily range): BP systolic 120–125; BP diastolic 73–79; TEMP 98.2–98.8; O2SAT 84–93
[2023-11-05 06:13] LABS: BASO % 0.1 % (0.0-1.0); EOS % 0.1 % (0.0-3.0); HEMATOCRIT 49.5 % (42.0-52.0); HEMOGLOBIN 16.1 g/dl (13.5-17.5); LYMPH # 1.6 10^3/uL (1.5-5.0); LYMPH % 11.1 % (24.0-44.0); MEAN CORPUSCULAR HEMOGLOBIN 31.9 pg (27.0-33.0); MEAN CORPUSCULAR HGB CONC 32.5 g/dl (32.0-36.5); MONO # 1.8 10^3/uL (0.0-0.8); MONO % 12.7 % (2.0-8.0); NEUTROPHILS # 10.8 10^3/uL (1.5-8.5); NEUTROPHILS % 75.4 % (36.0-66.0); PLATELET COUNT, AUTOMATED 237 10^3/uL (150-450); RED BLOOD COUNT 5.05 10^6/uL (4.30-6.10); WHITE BLOOD COUNT 14.3 10^3/uL (4.0-10.0)
[2023-11-05 06:40] LABS: ALBUMIN 2.9 G/DL (3.2-5.2); ALKALINE PHOSPHATASE 44 U/L (46-116); ALT/SGPT 205 U/L (7.0-40); AST/SGOT 40 U/L (<34); BILIRUBIN,DIRECT 0.5 MG/DL (<0.4); BILIRUBIN,TOTAL 1.2 MG/DL (0.3-1.2); BLOOD UREA NITROGEN 36 MG/DL (9-23); CALCIUM LEVEL 8.2 MG/DL (8.5-10.1); CARBON DIOXIDE LEVEL 38 MMOL/L (20-31); CHLORIDE LEVEL 102 MMOL/L (98-107); CREATININE FOR GFR 0.61 MG/DL (0.70-1.30); GLOMERULAR FILTRATION RATE > 60.0 (>56); GLUCOSE, FASTING 76 MG/DL (60-100); MAGNESIUM LEVEL 2.2 MG/DL (1.8-2.4); POTASSIUM SERUM 4.2 MMOL/L (3.5-5.1); SODIUM LEVEL 141 MMOL/L (136-145); TOTAL PROTEIN 5.5 G/DL (5.7-8.2)
[2023-11-05] MEDS: predniSONE 10MG TAB PO SCH (09:23)
[2023-11-05] MEDS: NYSTATIN 500,000U/5ML SUSP UDC SS SCH ×2 (13:42→17:14)
[2023-11-06] VITALS (13 sets, daily range): BP systolic 105–125; BP diastolic 67–74; TEMP 98.1–98.4; O2SAT 85–93
[2023-11-06 06:19] LABS: BASO % 0.1 % (0.0-1.0); EOS # 0.1 10^3/uL (0.0-0.5); EOS % 0.3 % (0.0-3.0); HEMATOCRIT 48.7 % (42.0-52.0); LYMPH # 1.4 10^3/uL (1.5-5.0); LYMPH % 8.3 % (24.0-44.0); MEAN CORPUSCULAR HEMOGLOBIN 31.8 pg (27.0-33.0); MEAN CORPUSCULAR HGB CONC 32.9 g/dl (32.0-36.5); MEAN CORPUSCULAR VOLUME 96.8 fl (80.0-96.0); MONO # 1.8 10^3/uL (0.0-0.8); MONO % 10.7 % (2.0-8.0); NEUTROPHILS # 13.2 10^3/uL (1.5-8.5); NEUTROPHILS % 80.2 % (36.0-66.0); PLATELET COUNT, AUTOMATED 209 10^3/uL (150-450); RED BLOOD COUNT 5.03 10^6/uL (4.30-6.10); WHITE BLOOD COUNT 16.5 10^3/uL (4.0-10.0)
[2023-11-06 06:49] LABS: ALBUMIN 2.7 G/DL (3.2-5.2); ALKALINE PHOSPHATASE 39 U/L (46-116); ALT/SGPT 142 U/L (7.0-40); AST/SGOT 24 U/L (<34); BILIRUBIN,DIRECT 0.7 MG/DL (<0.4); BILIRUBIN,TOTAL 1.5 MG/DL (0.3-1.2); BLOOD UREA NITROGEN 31 MG/DL (9-23); CALCIUM LEVEL 8.2 MG/DL (8.5-10.1); CARBON DIOXIDE LEVEL 34 MMOL/L (20-31); CHLORIDE LEVEL 101 MMOL/L (98-107); CREATININE FOR GFR 0.59 MG/DL (0.70-1.30); GLOMERULAR FILTRATION RATE > 60.0 (>56); GLUCOSE, FASTING 79 MG/DL (60-100); MAGNESIUM LEVEL 2.2 MG/DL (1.8-2.4); POTASSIUM SERUM 4.5 MMOL/L (3.5-5.1); SODIUM LEVEL 138 MMOL/L (136-145); TOTAL PROTEIN 5.1 G/DL (5.7-8.2)
[2023-11-06] MEDS: PANTOPRAZOLE 40MG TAB (PROTONIX) PO SCH (09:05)
[2023-11-06] MEDS: methylPREDNISolone 40MG 1ML VIAL IV SCH (10:49)
[2023-11-06] MEDS: BUDESONIDE 0.5 MG/2 ML INHALATION SUSPENSION NEB SCH (12:07)
[2023-11-06] MEDS: IPRATROPIUM 0.5MG/ALBUTEROL 2.5MG INH SOL UD 3ML (DUONEB) NEB SCH (12:07)
[2023-11-07 02:00] VITALS: BP 104/63; TEMP 97.9; O2SAT 93
[2023-11-07 06:04] VITALS: BP 102/72; TEMP 98.2; O2SAT 94
[2023-11-07 10:00] VITALS: BP 114/82; TEMP 98.1; O2SAT 93
[2023-11-07] MEDS ORDERED: ANOR1AER PO (10:11)
[2023-11-07] MEDS ORDERED: THIA100TA PO (10:20)
[2023-11-07] MEDS ORDERED: PRED10TA2 PO (10:20)
[2023-11-07] MEDS ORDERED: NYST-38 SS (10:20)
[2023-11-07] MEDS ORDERED: GUAI400T40 PO (10:20)
[2023-11-07] MEDS ORDERED: FOLI1TAB11 PO (10:20)
[2023-11-07] MEDS ORDERED: ALBU2.5V10 INH (10:21)
[2023-11-07] MEDS ORDERED: IPRA0.00 INH (10:21)
[2023-11-07] MEDS ORDERED: PRED20TA PO (10:21)
[2023-11-07] MEDS ORDERED: ALBU8.5H INH (10:21)
[2023-11-07] MEDS ORDERED: MIRA33506 PO (10:22)
[2023-11-08 18:09] LABS: A1A FOR PHENOTYPE 97 mg/dL (101-187); ALPHA-1-ANTITRYPSIN PHENOTYPE MS (.)
== END 2023-11-07 13:52 | disposition home health service (06) | DRG 189 ==
LOC: M ED 14:49 → M ED INP 19:26 → ENRESERV 21:25 → M PCU 22:12 → M MS5PR 11-04 15:25 → M MSPAV 11-04 23:02
PROVIDERS: ADMIT Internal Medicine; ATTEND Internal Medicine
DX: J96.01 Acute respiratory failure with hypoxia (principal); G93.41 Metabolic encephalopathy; J44.1 Chronic obstructive pulmonary disease with (acute) exacerbation; F11.20 Opioid dependence, uncomplicated; M62.82 Rhabdomyolysis; B37.0 Candidal stomatitis; G35 Multiple sclerosis; G89.29 Other chronic pain; I27.20 Pulmonary hypertension, unspecified; R74.01 Elevation of levels of liver transaminase levels; G31.84 Mild cognitive impairment of uncertain or unknown etiology; I27.81 Cor pulmonale (chronic); E88.01 Alpha-1-antitrypsin deficiency; Z86.16 Personal history of COVID-19; Z79.899 Other long term (current) drug therapy; Z87.891 Personal history of nicotine dependence

== ENCOUNTER 2024-10-11 22:46 | Inpatient (IN) | payer MEDICARE, MEDICAID ==
[~2024-10-11] VITALS: Ht 172.7 cm; Wt 61.0 kg
[~2024-10-11 22:46] MED LIST changes: -ADV250INH INH; +ADVA1AER9 INH; +ALBU2.5V10 INH; +ALBU8.5H INH; +ANOR1AER PO; +CARI-555 PO; -CARI1TAB7 PO; +FOLI1TAB11 PO; +GUAI400T40 PO; +HYDR-3719 PO; +INCR1INH INH; +IPRA0.00 INH; +METH4PACK PO; +MIRA33506 PO; +NIRM1TAB14 PO; +NYST-38 SS; +THIA100TA PO
[2024-10-11] MEDS: IPRATROPIUM 0.5MG/ALBUTEROL 2.5MG INH SOL UD 3ML (DUONEB) NEB PRN (23:42)
[2024-10-12 00:58] LABS: VENOUS BASE EXCESS 12.7 (-2.0-2.0); VENOUS HCO3 46.5 MMOL/L (23.0-27.0); VENOUS O2 SATURATION 62.7 % (60.0-80.0); VENOUS PARTIAL PRESSURE CO2 123.4 mmHg (38.0-50.0); VENOUS PARTIAL PRESSURE O2 35.6 mmHg (30.0-50.0); VENOUS PH 7.194 UNITS (7.330-7.430); VENOUS STANDARD HCO3 35.5 MMOL/L; VENOUS TOTAL CO2 50.3 MMOL/L (24.0-28.0)
[2024-10-12 01:01] LABS: BASO % 0.2 % (0.0-1.0); HEMATOCRIT 45.7 % (42.0-52.0); HEMOGLOBIN 13.7 g/dl (13.5-17.5); LYMPH # 0.9 10^3/uL (1.5-5.0); LYMPH % 5.5 % (24.0-44.0); MEAN CORPUSCULAR HEMOGLOBIN 31.8 pg (27.0-33.0); MONO # 1.6 10^3/uL (0.0-0.8); MONO % 9.2 % (2.0-8.0); NEUTROPHILS # 14.4 10^3/uL (1.5-8.5); NEUTROPHILS % 84.6 % (36.0-66.0); PLATELET COUNT, AUTOMATED 213 10^3/uL (150-450); RED BLOOD COUNT 4.31 10^6/uL (4.30-6.10)
[2024-10-12 01:31] LABS: ALKALINE PHOSPHATASE 86 U/L (40-129); ALT/SGPT 604 U/L (7.0-40); AST/SGOT 608 U/L (<34); BILIRUBIN,DIRECT 1.4 MG/DL (<0.4); BILIRUBIN,TOTAL 2.2 MG/DL (0.3-1.2); BLOOD UREA NITROGEN 38 MG/DL (9-23); CALCIUM LEVEL 9.4 MG/DL (8.5-10.1); CARBON DIOXIDE LEVEL > 40.0 MMOL/L (20-31); CHLORIDE LEVEL 98 MMOL/L (98-107); CREATININE FOR GFR 1.36 MG/DL (0.70-1.30); GLOMERULAR FILTRATION RATE 57.1 (>56); GLUCOSE, FASTING 105 MG/DL (60-100); POTASSIUM SERUM 5.1 MMOL/L (3.5-5.1); SODIUM LEVEL 151 MMOL/L (136-145); TOTAL PROTEIN 7.2 G/DL (5.7-8.2)
[2024-10-12] MEDS: NS (Normal Saline) 0.9% 1,000 ML IV ONE (02:35)
[2024-10-12 03:10] LABS: ABG pH (ARTERIAL) 7.327 UNITS (7.350-7.450)
[2024-10-12 03:16] LABS: ABG BASE EXCESS 7.9 (-2.0-2.0); ABG HCO3 36.4 MMOL/L (22.0-26.0); ABG O2 SATURATION 98.8 % (95.0-99.0); ABG PARTIAL PRESSURE O2 148.2 mmHg (75.0-100.0); ABG STANDARD HCO3 31.7 MMOL/L. (22.0-26.0); ABG TOTAL CO2 38.6 MMOL/L (22.0-29.0)
[2024-10-12 03:18] LABS: ABG PARTIAL PRESSURE CO2 71.1 mmHg (35.0-45.0)
[2024-10-12] MEDS ORDERED: LACTULOSE 20GM/30ML SYRUP UDC PO SCH (09:00)
[2024-10-12 10:27] LABS: BASO % 0.3 % (0.0-1.0); HEMATOCRIT 43.2 % (42.0-52.0); HEMOGLOBIN 12.6 g/dl (13.5-17.5); LYMPH # 1.4 10^3/uL (1.5-5.0); MEAN CORPUSCULAR HEMOGLOBIN 30.6 pg (27.0-33.0); MEAN CORPUSCULAR HGB CONC 29.2 g/dl (32.0-36.5); MEAN CORPUSCULAR VOLUME 104.9 fl (80.0-96.0); MONO # 1.5 10^3/uL (0.0-0.8); MONO % 9.7 % (2.0-8.0); NEUTROPHILS # 12.5 10^3/uL (1.5-8.5); NEUTROPHILS % 80.7 % (36.0-66.0); PLATELET COUNT, AUTOMATED 235 10^3/uL (150-450); RED BLOOD COUNT 4.12 10^6/uL (4.30-6.10); WHITE BLOOD COUNT 15.5 10^3/uL (4.0-10.0)
[2024-10-12 11:11] LABS: ALBUMIN 3.7 G/DL (3.2-5.2); ALKALINE PHOSPHATASE 78 U/L (40-129); ALT/SGPT 1106 U/L (7.0-40); AST/SGOT 1259 U/L (<34); BLOOD UREA NITROGEN 46 MG/DL (9-23); CALCIUM LEVEL 9.3 MG/DL (8.5-10.1); CARBON DIOXIDE LEVEL > 40.0 MMOL/L (20-31); CHLORIDE LEVEL 104 MMOL/L (98-107); CREATININE FOR GFR 1.08 MG/DL (0.70-1.30); GLOMERULAR FILTRATION RATE > 60.0 (>56); GLUCOSE, FASTING 106 MG/DL (60-100); POTASSIUM SERUM 4.8 MMOL/L (3.5-5.1); SODIUM LEVEL 150 MMOL/L (136-145)
[2024-10-12] MEDS ORDERED: IPRA0.00 INH (11:35)
[2024-10-12] MEDS ORDERED: NS (Normal Saline) 0.9% 1,000 ML IV ONE (11:40)
[2024-10-12] MEDS ORDERED: HOME MED LIST COMPLETE! XX SCH (11:40)
[2024-10-12] MEDS: BUDESONIDE 0.5 MG/2 ML INHALATION SUSPENSION NEB SCH (12:16)
[2024-10-12] MEDS: FORMOTEROL FUMARATE 20 MCG/2 ML INHALATION SOLUTION (PERFOROMIST) INH SCH (12:16)
[2024-10-12] MEDS: IPRATROPIUM 0.5MG/ALBUTEROL 2.5MG INH SOL UD 3ML (DUONEB) NEB SCH (12:16)
[2024-10-12 12:38] LABS: INR 1.07; PROTHROMBIN TIME 14.2 SECONDS (12.5-14.5)
[2024-10-12 12:43] LABS: ETHYL ALCOHOL (ETHANOL) 0.004 % (0.000-0.010)
[2024-10-12 12:44] LABS: C REACTIVE PROTEIN QUANTITATIV 3.26 MG/DL (<1.0)
[2024-10-12 12:45] LABS: THYROID STIMULATING HORMONE 0.196 uIU/ML (0.55-4.78)
[2024-10-12 12:46] LABS: FOLATE > 24.00 NG/ML (>5.4); HEPATITIS B SURFACE ANTIBODY NEGATIVE (POSITIVE); VITAMIN B12 LEVEL 704 PG/ML (211-911)
[2024-10-12 12:50] LABS: PROCALCITONIN 2.56 ng/ml
[2024-10-12 12:59] LABS: HEPATITIS B SURFACE ANTIGEN NEGATIVE (NEGATIVE)
[2024-10-12 13:18] LABS: HEPATITIS C VIRUS ABY INDEX 0.11 INDEX (<0.8)
[2024-10-12] MEDS ORDERED: NS (Normal Saline) 0.9% 1,000 ML IV SCH (13:50)
[2024-10-12] MEDS: methylPREDNISolone 125MG 2ML VIAL IV ONE (14:02)
[2024-10-12] MEDS: AZITHROMYCIN INJ 500 MG, VIAL MATE ADAPTER 1 EACH in NS 250 ML IV SCH (14:02)
[2024-10-12] MEDS ORDERED: ISOVUE-370 76% 100ML VIAL As Ordered ONE (14:03)
[2024-10-12 14:33] LABS: KETONE, URINE AUTO RFX TRACE mg/dL (NEGATIVE); LEUKOCYTE ESTERASE UR AUTO RFX 2+ (NEGATIVE); MUCUS, URINE RFX SMALL (NEGATIVE); NITRITE, URINE AUTO RFX NEGATIVE (NEGATIVE); RBC, URINE AUTO RFX 1 /HPF (0-3); SQUAM EPITHELIAL CELL UR AURFX 4 /HPF (0-6); WBC, URINE AUTO RFX 3 /HPF (0-3)
[2024-10-12 14:41] LABS: FREE T4 1.27 NG/DL (0.89-1.76)
[2024-10-12 14:51] LABS: AMPHETAMINES LEVEL URINE NEGATIVE (NEGATIVE); BARBITURATES URINE NEGATIVE (NEGATIVE); BENZODIAZEPINES URINE NEGATIVE (NEGATIVE); CANNABINOIDS URINE NEGATIVE (NEGATIVE); COCAINE METABOLITE URINE NEGATIVE (NEGATIVE); METHADONE URINE NEGATIVE (NEGATIVE); PHENCYCLIDINE URINE NEGATIVE (NEGATIVE)
[2024-10-12 14:52] LABS: OPIATES URINE NEGATIVE (NEGATIVE)
[2024-10-12] MEDS: D5W IV ONE ×2 (16:31→18:29)
[2024-10-12] MEDS: ACETYLCYSTEINE IV ONE ×2 (16:31→18:29)
[2024-10-12] MEDS: cefTRIAXone SOD 2 GM in DEXTROSE 5% (D5W) ADV/MINI-BAG 50 ML IV SCH (17:00)
[2024-10-12] MEDS: LACTULOSE 20GM/30ML SYRUP UDC PO SCH (17:00)
[2024-10-12] MEDS: D5W 1,000 ML IV SCH (17:00)
[2024-10-12] MEDS: LACTULOSE 20GM/30ML SYRUP UDC PR SCH (18:00)
[2024-10-12 18:25] LABS: HEMATOCRIT 40.5 % (42.0-52.0); HEMOGLOBIN 12.3 g/dl (13.5-17.5); MEAN CORPUSCULAR HEMOGLOBIN 31.5 pg (27.0-33.0); MEAN CORPUSCULAR HGB CONC 30.4 g/dl (32.0-36.5); MEAN CORPUSCULAR VOLUME 103.8 fl (80.0-96.0); PLATELET COUNT, AUTOMATED 224 10^3/uL (150-450)
[2024-10-12 18:47] LABS: HEPATITIS B CORE ANTIBODY IGM NEGATIVE (NEGATIVE)
[2024-10-12 18:52] LABS: BLOOD UREA NITROGEN 46 MG/DL (9-23); CALCIUM LEVEL 8.9 MG/DL (8.5-10.1); CARBON DIOXIDE LEVEL 38 MMOL/L (20-31); CHLORIDE LEVEL 102 MMOL/L (98-107); CREATININE FOR GFR 0.72 MG/DL (0.70-1.30); GLOMERULAR FILTRATION RATE > 60.0 (>56); GLUCOSE, FASTING 169 MG/DL (60-100); POTASSIUM SERUM 4.4 MMOL/L (3.5-5.1); SODIUM LEVEL 150 MMOL/L (136-145)
[2024-10-12 20:32] LABS: ABG BASE EXCESS 11.1 (-2.0-2.0); ABG HCO3 37.5 MMOL/L (22.0-26.0); ABG PARTIAL PRESSURE CO2 58.8 mmHg (35.0-45.0); ABG PARTIAL PRESSURE O2 156.1 mmHg (75.0-100.0); ABG STANDARD HCO3 34.9 MMOL/L. (22.0-26.0); ABG TOTAL CO2 39.3 MMOL/L (22.0-29.0); ABG pH (ARTERIAL) 7.422 UNITS (7.350-7.450)
[2024-10-12] MEDS: methylPREDNISolone 40MG 1ML VIAL IV SCH (22:15)
[2024-10-13] VITALS (13 sets, daily range): BP systolic 113–120; BP diastolic 58–66; TEMP 98–98.5; O2SAT 84–99
[2024-10-13 00:42] LABS: BLOOD UREA NITROGEN 39 MG/DL (9-23); CALCIUM LEVEL 8.9 MG/DL (8.5-10.1); CARBON DIOXIDE LEVEL > 40.0 MMOL/L (20-31); CHLORIDE LEVEL 101 MMOL/L (98-107); CREATININE FOR GFR 0.64 MG/DL (0.70-1.30); GLOMERULAR FILTRATION RATE > 60.0 (>56); GLUCOSE, FASTING 174 MG/DL (60-100); POTASSIUM SERUM 3.9 MMOL/L (3.5-5.1); SODIUM LEVEL 148 MMOL/L (136-145)
[2024-10-13] MEDS: OLANZapine INTRAMUSCULAR 10MG VIAL IM ONE (01:00)
[2024-10-13 06:57] LABS: BASO % 0.1 % (0.0-1.0); HEMATOCRIT 36.7 % (42.0-52.0); HEMOGLOBIN 11.4 g/dl (13.5-17.5); LYMPH # 0.9 10^3/uL (1.5-5.0); LYMPH % 8.1 % (24.0-44.0); MEAN CORPUSCULAR HEMOGLOBIN 31.6 pg (27.0-33.0); MEAN CORPUSCULAR HGB CONC 31.1 g/dl (32.0-36.5); MEAN CORPUSCULAR VOLUME 101.7 fl (80.0-96.0); MONO # 0.5 10^3/uL (0.0-0.8); NEUTROPHILS # 9.9 10^3/uL (1.5-8.5); NEUTROPHILS % 87.3 % (36.0-66.0); PLATELET COUNT, AUTOMATED 221 10^3/uL (150-450); RED BLOOD COUNT 3.61 10^6/uL (4.30-6.10); WHITE BLOOD COUNT 11.3 10^3/uL (4.0-10.0)
[2024-10-13 07:08] LABS: INR 1.06; PROTHROMBIN TIME 14.1 SECONDS (12.5-14.5)
[2024-10-13 07:26] LABS: ALBUMIN 3.1 G/DL (3.2-5.2); ALKALINE PHOSPHATASE 63 U/L (40-129); ALT/SGPT 941 U/L (7.0-40); AST/SGOT 598 U/L (<34); BILIRUBIN,TOTAL 0.6 MG/DL (0.3-1.2); BLOOD UREA NITROGEN 32 MG/DL (9-23); CALCIUM LEVEL 8.9 MG/DL (8.5-10.1); CARBON DIOXIDE LEVEL > 40.0 MMOL/L (20-31); CHLORIDE LEVEL 99 MMOL/L (98-107); CREATININE FOR GFR 0.56 MG/DL (0.70-1.30); GLOMERULAR FILTRATION RATE > 60.0 (>56); GLUCOSE, FASTING 152 MG/DL (60-100); MAGNESIUM LEVEL 2.2 MG/DL (1.8-2.4); SODIUM LEVEL 145 MMOL/L (136-145); TOTAL PROTEIN 5.9 G/DL (5.7-8.2)
[2024-10-13] MEDS ORDERED: ENOXAPARIN 40MG/0.4ML SYRINGE (J1650 PER 10MG) SC SCH (09:00)
[2024-10-13] MEDS: ENOXAPARIN 40MG/0.4ML SYRINGE (J1650 PER 10MG) SC SCH (09:33)
[2024-10-13 10:57] LABS: VENOUS BASE EXCESS 10.8 (-2.0-2.0); VENOUS HCO3 37.4 MMOL/L (23.0-27.0); VENOUS O2 SATURATION 98.8 % (60.0-80.0); VENOUS PARTIAL PRESSURE CO2 59.1 mmHg (38.0-50.0); VENOUS PARTIAL PRESSURE O2 189.9 mmHg (30.0-50.0); VENOUS PH 7.419 UNITS (7.330-7.430); VENOUS STANDARD HCO3 34.6 MMOL/L; VENOUS TOTAL CO2 39.2 MMOL/L (24.0-28.0)
[2024-10-13 12:37] LABS: HEPATITIS A IgG TOTAL NON-REACTIVE (NON-REACTIVE); HEPATITIS B CORE ANTIBODY IGG NON-REACTIVE (NON-REACTIVE)
[2024-10-13 19:52] LABS: BLOOD UREA NITROGEN 24 MG/DL (9-23); CALCIUM LEVEL 8.9 MG/DL (8.5-10.1); CARBON DIOXIDE LEVEL > 40.0 MMOL/L (20-31); CHLORIDE LEVEL 96 MMOL/L (98-107); CREATININE FOR GFR 0.56 MG/DL (0.70-1.30); GLOMERULAR FILTRATION RATE > 60.0 (>56); GLUCOSE, FASTING 160 MG/DL (60-100); POTASSIUM SERUM 4.1 MMOL/L (3.5-5.1); SODIUM LEVEL 144 MMOL/L (136-145)
[2024-10-14] VITALS (24 sets, daily range): BP systolic 101–127; BP diastolic 61–78; TEMP 97.2–98.3; O2SAT 92–99
[2024-10-14] MEDS: CALCIUM CARBONATE 500 MG CHEW U/D PO ONE (02:00)
[2024-10-14 05:05] LABS: ABG BASE EXCESS 7.6 (-2.0-2.0); ABG PARTIAL PRESSURE O2 228.4 mmHg (75.0-100.0); ABG STANDARD HCO3 31.5 MMOL/L. (22.0-26.0); ABG TOTAL CO2 36.9 MMOL/L (22.0-29.0); ABG pH (ARTERIAL) 7.356 UNITS (7.350-7.450)
[2024-10-14 05:07] LABS: ABG PARTIAL PRESSURE CO2 63.9 mmHg (35.0-45.0)
[2024-10-14 05:22] LABS: BASO % 0.1 % (0.0-1.0); HEMATOCRIT 36.7 % (42.0-52.0); HEMOGLOBIN 11.2 g/dl (13.5-17.5); LYMPH # 0.7 10^3/uL (1.5-5.0); LYMPH % 5.1 % (24.0-44.0); MEAN CORPUSCULAR HEMOGLOBIN 30.8 pg (27.0-33.0); MEAN CORPUSCULAR HGB CONC 30.5 g/dl (32.0-36.5); MEAN CORPUSCULAR VOLUME 100.8 fl (80.0-96.0); MONO # 0.6 10^3/uL (0.0-0.8); MONO % 4.2 % (2.0-8.0); NEUTROPHILS # 12.5 10^3/uL (1.5-8.5); NEUTROPHILS % 90.1 % (36.0-66.0); PLATELET COUNT, AUTOMATED 268 10^3/uL (150-450); RED BLOOD COUNT 3.64 10^6/uL (4.30-6.10); WHITE BLOOD COUNT 13.9 10^3/uL (4.0-10.0)
[2024-10-14 06:01] LABS: ALKALINE PHOSPHATASE 61 U/L (40-129); ALT/SGPT 652 U/L (7.0-40); AST/SGOT 192 U/L (<34); BILIRUBIN,TOTAL 0.6 MG/DL (0.3-1.2); BLOOD UREA NITROGEN 18 MG/DL (9-23); CALCIUM LEVEL 9.1 MG/DL (8.5-10.1); CARBON DIOXIDE LEVEL > 40.0 MMOL/L (20-31); CHLORIDE LEVEL 98 MMOL/L (98-107); CREATININE FOR GFR 0.54 MG/DL (0.70-1.30); GLOMERULAR FILTRATION RATE > 60.0 (>56); GLUCOSE, FASTING 153 MG/DL (60-100); MAGNESIUM LEVEL 2.2 MG/DL (1.8-2.4); POTASSIUM SERUM 3.8 MMOL/L (3.5-5.1); SODIUM LEVEL 146 MMOL/L (136-145); TOTAL PROTEIN 5.9 G/DL (5.7-8.2)
[2024-10-14 06:54] LABS: C REACTIVE PROTEIN QUANTITATIV 0.98 MG/DL (<1.0)
[2024-10-14 07:01] LABS: PROCALCITONIN 0.75 ng/ml
[2024-10-15 03:24] VITALS: BP 122/68; TEMP 98.3; O2SAT 100
[2024-10-15 07:40] VITALS: BP 107/63; TEMP 97.6; O2SAT 95
[2024-10-15 09:14] LABS: BASO % 0.1 % (0.0-1.0); HEMATOCRIT 38.7 % (42.0-52.0); HEMOGLOBIN 11.8 g/dl (13.5-17.5); LYMPH # 0.8 10^3/uL (1.5-5.0); LYMPH % 5.5 % (24.0-44.0); MEAN CORPUSCULAR HEMOGLOBIN 31.1 pg (27.0-33.0); MEAN CORPUSCULAR HGB CONC 30.5 g/dl (32.0-36.5); MEAN CORPUSCULAR VOLUME 101.8 fl (80.0-96.0); MONO # 0.5 10^3/uL (0.0-0.8); MONO % 3.4 % (2.0-8.0); NEUTROPHILS # 13.4 10^3/uL (1.5-8.5); NEUTROPHILS % 90.3 % (36.0-66.0); PLATELET COUNT, AUTOMATED 314 10^3/uL (150-450); WHITE BLOOD COUNT 14.9 10^3/uL (4.0-10.0)
[2024-10-15 09:35] LABS: ALBUMIN 3.1 G/DL (3.2-5.2); ALKALINE PHOSPHATASE 61 U/L (40-129); ALT/SGPT 461 U/L (7.0-40); AST/SGOT 52 U/L (<34); BILIRUBIN,TOTAL 0.5 MG/DL (0.3-1.2); BLOOD UREA NITROGEN 23 MG/DL (9-23); CALCIUM LEVEL 9.1 MG/DL (8.5-10.1); CARBON DIOXIDE LEVEL > 40.0 MMOL/L (20-31); CHLORIDE LEVEL 96 MMOL/L (98-107); CREATININE FOR GFR 0.51 MG/DL (0.70-1.30); GLOMERULAR FILTRATION RATE > 60.0 (>56); GLUCOSE, FASTING 181 MG/DL (60-100); MAGNESIUM LEVEL 2.2 MG/DL (1.8-2.4); POTASSIUM SERUM 4.2 MMOL/L (3.5-5.1); SODIUM LEVEL 145 MMOL/L (136-145); TOTAL PROTEIN 5.8 G/DL (5.7-8.2)
[2024-10-15] MEDS: guaiFENesin ER TABLET 600 MG TAB PO SCH (10:34)
[2024-10-15 11:58] VITALS: BP 129/65; TEMP 98; O2SAT 95
[2024-10-15 22:34] VITALS: BP_SYST 142; BP_SYST 151; BP_DIAS 73; BP_DIAS 74; TEMP 98.2; O2SAT 95
[2024-10-15 23:00] VITALS: O2SAT 97
[2024-10-16] VITALS (12 sets, daily range): BP systolic 113–127; BP diastolic 71–74; TEMP 97.9–98.1; O2SAT 79–99
[2024-10-16 06:22] LABS: HEMATOCRIT 35.8 % (42.0-52.0); HEMOGLOBIN 10.9 g/dl (13.5-17.5); LYMPH # 0.8 10^3/uL (1.5-5.0); LYMPH % 6.5 % (24.0-44.0); MEAN CORPUSCULAR HEMOGLOBIN 30.8 pg (27.0-33.0); MEAN CORPUSCULAR HGB CONC 30.4 g/dl (32.0-36.5); MEAN CORPUSCULAR VOLUME 101.1 fl (80.0-96.0); MONO # 0.7 10^3/uL (0.0-0.8); MONO % 5.3 % (2.0-8.0); NEUTROPHILS % 87.6 % (36.0-66.0); PLATELET COUNT, AUTOMATED 285 10^3/uL (150-450); RED BLOOD COUNT 3.54 10^6/uL (4.30-6.10); WHITE BLOOD COUNT 12.5 10^3/uL (4.0-10.0)
[2024-10-16 06:56] LABS: ALBUMIN 2.8 G/DL (3.2-5.2); ALKALINE PHOSPHATASE 53 U/L (40-129); ALT/SGPT 306 U/L (7.0-40); AST/SGOT 26 U/L (<34); BILIRUBIN,TOTAL 0.5 MG/DL (0.3-1.2); BLOOD UREA NITROGEN 28 MG/DL (9-23); CARBON DIOXIDE LEVEL > 40.0 MMOL/L (20-31); CHLORIDE LEVEL 101 MMOL/L (98-107); CREATININE FOR GFR 0.53 MG/DL (0.70-1.30); GLOMERULAR FILTRATION RATE > 60.0 (>56); GLUCOSE, FASTING 119 MG/DL (60-100); POTASSIUM SERUM 4.3 MMOL/L (3.5-5.1); SODIUM LEVEL 150 MMOL/L (136-145); TOTAL PROTEIN 5.4 G/DL (5.7-8.2)
[2024-10-16] MEDS ORDERED: ALBUTEROL SULFATE 2.5MG/0.5ML INH NEB SOLN NEB PRN (11:05)
[2024-10-16] MEDS: D5W 500 ML IV ONE (12:54)
[2024-10-16] MEDS ORDERED: PRED10TA2 PO (15:39)
[2024-10-16] MEDS ORDERED: ALB2.5NEB NEB (15:39)
[2024-10-16] MEDS ORDERED: IPRA0.00 NEB (15:39)
[2024-10-16] MEDS ORDERED: BUDE90AE INH (15:39)
[2024-10-16] MEDS ORDERED: ANOR1AER PO (15:39)
[2024-10-16] MEDS ORDERED: MUCI600T31 PO (16:14)
[2024-10-17] VITALS (7 sets, daily range): BP systolic 120–127; BP diastolic 75–80; TEMP 97.9–98.1; O2SAT 79–97
[2024-10-17 06:28] LABS: BASO % 0.1 % (0.0-1.0); HEMATOCRIT 37.4 % (42.0-52.0); HEMOGLOBIN 11.3 g/dl (13.5-17.5); LYMPH # 0.6 10^3/uL (1.5-5.0); LYMPH % 4.8 % (24.0-44.0); MEAN CORPUSCULAR HEMOGLOBIN 30.7 pg (27.0-33.0); MEAN CORPUSCULAR HGB CONC 30.2 g/dl (32.0-36.5); MEAN CORPUSCULAR VOLUME 101.6 fl (80.0-96.0); MONO # 0.7 10^3/uL (0.0-0.8); MONO % 5.6 % (2.0-8.0); NEUTROPHILS # 11.7 10^3/uL (1.5-8.5); NEUTROPHILS % 88.8 % (36.0-66.0); PLATELET COUNT, AUTOMATED 317 10^3/uL (150-450); RED BLOOD COUNT 3.68 10^6/uL (4.30-6.10); WHITE BLOOD COUNT 13.1 10^3/uL (4.0-10.0)
[2024-10-17 07:04] LABS: ALBUMIN 2.8 G/DL (3.2-5.2); ALKALINE PHOSPHATASE 54 U/L (40-129); ALT/SGPT 232 U/L (7.0-40); AST/SGOT 19 U/L (<34); BILIRUBIN,TOTAL 0.5 MG/DL (0.3-1.2); BLOOD UREA NITROGEN 30 MG/DL (9-23); CALCIUM LEVEL 9.1 MG/DL (8.5-10.1); CARBON DIOXIDE LEVEL > 40.0 MMOL/L (20-31); CHLORIDE LEVEL 100 MMOL/L (98-107); CREATININE FOR GFR 0.55 MG/DL (0.70-1.30); GLOMERULAR FILTRATION RATE > 60.0 (>56); GLUCOSE, FASTING 123 MG/DL (60-100); POTASSIUM SERUM 4.1 MMOL/L (3.5-5.1); SODIUM LEVEL 150 MMOL/L (136-145); TOTAL PROTEIN 5.3 G/DL (5.7-8.2)
[2024-10-17 09:46] LABS: HEMATOCRIT 39.4 % (42.0-52.0); HEMOGLOBIN 11.9 g/dl (13.5-17.5); MEAN CORPUSCULAR HEMOGLOBIN 31.4 pg (27.0-33.0); MEAN CORPUSCULAR HGB CONC 30.2 g/dl (32.0-36.5); PLATELET COUNT, AUTOMATED 320 10^3/uL (150-450); RED BLOOD COUNT 3.79 10^6/uL (4.30-6.10); WHITE BLOOD COUNT 14.8 10^3/uL (4.0-10.0)
[2024-10-17 10:09] LABS: BLOOD UREA NITROGEN 29 MG/DL (9-23); CALCIUM LEVEL 9.3 MG/DL (8.5-10.1); CARBON DIOXIDE LEVEL > 40.0 MMOL/L (20-31); CHLORIDE LEVEL 100 MMOL/L (98-107); CREATININE FOR GFR 0.54 MG/DL (0.70-1.30); GLOMERULAR FILTRATION RATE > 60.0 (>56); GLUCOSE, FASTING 176 MG/DL (60-100); POTASSIUM SERUM 4.3 MMOL/L (3.5-5.1); SODIUM LEVEL 149 MMOL/L (136-145)
[2024-10-17] MEDS: FLEET ENEMA PR ONE (11:31)
== END 2024-10-17 14:05 | disposition home health service (06) | DRG 70 ==
LOC: M ED 22:46 → EDBD 22:46 → M ED INP 10-12 09:50 → M PCU 10-13 15:18 → M MSPAV 10-15 22:33
PROVIDERS: ADMIT Internal Medicine; ATTEND Student in an Organized Health Care Education/Training Program
PROC: B246ZZZ Ultrasonography of Right and Left Heart (ICD-10-PCS; principal; 2024-10-13)
DX: G93.41 Metabolic encephalopathy (principal); J96.21 Acute and chronic respiratory failure with hypoxia; J96.22 Acute and chronic respiratory failure with hypercapnia; N17.9 Acute kidney failure, unspecified; E87.0 Hyperosmolality and hypernatremia; N39.0 Urinary tract infection, site not specified; E87.29 Other acidosis; J44.1 Chronic obstructive pulmonary disease with (acute) exacerbation; I27.20 Pulmonary hypertension, unspecified; G35 Multiple sclerosis; E86.0 Dehydration; B34.2 Coronavirus infection, unspecified; G89.29 Other chronic pain; F17.200 Nicotine dependence, unspecified, uncomplicated; R74.01 Elevation of levels of liver transaminase levels; Z66 Do not resuscitate; Z79.51 Long term (current) use of inhaled steroids; Z79.899 Other long term (current) drug therapy; Z99.81 Dependence on supplemental oxygen; Z71.6 Tobacco abuse counseling; Z79.891 Long term (current) use of opiate analgesic

== ENCOUNTER → 2024-10-28 | Outpatient (REF) | payer MEDICARE, MEDICAID ==
[~2024-10-28] MED LIST changes: +ALB2.5NEB NEB; +BUDE90AE INH; +IPRA0.00 NEB; +MUCI600T31 PO
== END ==
LOC: M SFHCADAM 11:36
PROVIDERS: ATTEND Physician Assistant Medical
DX: E87.0 Hyperosmolality and hypernatremia (principal); R79.89 Other specified abnormal findings of blood chemistry

== ENCOUNTER → 2024-12-09 | Outpatient (REF) | payer MEDICARE, MEDICAID ==
[2024-12-09 13:20] LABS: BASO # 0.1 10^3/uL (0.0-0.2); BASO % 1.4 % (0.0-1.0); EOS # 0.2 10^3/uL (0.0-0.5); EOS % 2.7 % (0.0-3.0); HEMATOCRIT 41.7 % (42.0-52.0); HEMOGLOBIN 12.3 g/dl (13.5-17.5); MEAN CORPUSCULAR HEMOGLOBIN 30.8 pg (27.0-33.0); MEAN CORPUSCULAR HGB CONC 29.5 g/dl (32.0-36.5); MEAN CORPUSCULAR VOLUME 104.5 fl (80.0-96.0); MONO # 0.5 10^3/uL (0.0-0.8); NEUTROPHILS # 5.8 10^3/uL (1.5-8.5); NEUTROPHILS % 66.6 % (36.0-66.0); PLATELET COUNT, AUTOMATED 298 10^3/uL (150-450); RED BLOOD COUNT 3.99 10^6/uL (4.30-6.10); WHITE BLOOD COUNT 8.7 10^3/uL (4.0-10.0)
[2024-12-09 13:41] LABS: HEMOGLOBIN A1c 4.6 % (4.0-6.0)
[2024-12-09 13:58] LABS: ALBUMIN 3.6 G/DL (3.2-5.2); ALKALINE PHOSPHATASE 64 U/L (40-129); ALT/SGPT 10 U/L (7.0-40); AST/SGOT 13 U/L (<34); BILIRUBIN,TOTAL 0.7 MG/DL (0.3-1.2); BLOOD UREA NITROGEN 16 MG/DL (9-23); CALCIUM LEVEL 9.4 MG/DL (8.5-10.1); CARBON DIOXIDE LEVEL 38 MMOL/L (20-31); CHLORIDE LEVEL 103 MMOL/L (98-107); CHOLESTEROL LEVEL 154 MG/DL (<200); CHOLESTEROL RISK RATIO 2.59 (<5); FREE T4 1.21 NG/DL (0.89-1.76); GLOMERULAR FILTRATION RATE > 90.0 (>56); GLUCOSE, FASTING 74 MG/DL (60-100); HDL CHOLESTEROL 59.3 MG/DL (>40); LDL CHOLESTEROL 77.7 MG/DL (<100); NON-HDL-C 94.7 MG/DL; SODIUM LEVEL 147 MMOL/L (136-145); THYROID STIMULATING HORMONE 1.559 uIU/ML (0.55-4.78); TOTAL PROTEIN 6.4 G/DL (5.7-8.2); TRIGLYCERIDES LEVEL 85 MG/DL (<150)
== END ==
LOC: M SFHCADAM 10:39
PROVIDERS: ATTEND Physician Assistant Medical
DX: J96.11 Chronic respiratory failure with hypoxia (principal); E87.0 Hyperosmolality and hypernatremia; R79.89 Other specified abnormal findings of blood chemistry; G35 Multiple sclerosis; Z74.09 Other reduced mobility; B35.1 Tinea unguium

== ENCOUNTER → 2025-07-08 | Outpatient (REF) | payer MEDICARE, MEDICAID ==
[~2025-07-08] MED LIST changes: -NIRM1TAB14 PO; +NIRM1TAB16 PO
[2025-07-08 15:06] LABS: CALCIUM LEVEL 9.4 MG/DL (8.3-10.6); CARBON DIOXIDE LEVEL > 40.0 MMOL/L (20-31); CHLORIDE LEVEL 101 MMOL/L (98-107); CREATININE FOR GFR 0.72 MG/DL (0.70-1.30); GLOMERULAR FILTRATION RATE > 90.0 (>49); POTASSIUM SERUM 5.0 MMOL/L (3.5-5.1); SODIUM LEVEL 147 MMOL/L (136-145)
== END ==
LOC: M SFHCADAM 10:13
PROVIDERS: ATTEND Physician Assistant Medical
DX: E87.0 Hyperosmolality and hypernatremia (principal)